=== PATIENT | male | born 1930 | race Hispanic/Latino ===

== ENCOUNTER 2017-11-08 07:50 | Inpatient (IN) | payer MEDICARE, OTHER ==
[2017-11-08 08:54] LABS: Basophils % (Auto) 0.8 % (0.0-1.8); Eosinophils % (Auto) 3.1 % (0.0-4.3); Hematocrit 22.4 % (35.5-45.6); Mean Corpuscular HGB Conc 31 % (32-34); Mean Corpuscular Hemoglobin 27 pg (28-32); Mean Corpuscular Volume 85 fl (84-94); Platelet Count 236 K/mm3 (140-440); Red Blood Count 2.63 M/mm3 (3.65-5.03); White Blood Count 6.6 K/mm3 (4.5-11.0)
[2017-11-08 08:57] LABS: Calcium 8.1 mg/dL (8.4-10.2); Chloride 107.7 mmol/L (98-107)
--- NOTE | 2017-11-08 09:10 | XRay Report ---
ROUTINE CHEST, TWO VIEWS: HISTORY: Shortness of breath. No comparison. Previous CABG changes are noted. There is borderline to mild cardiomegaly. Normal pulmonary vascularity. Bronchovascular markings in the left lower lobe are slightly prominent which appear chronic. Otherwise, the lungs are clear. No pleural effusion or pneumothorax. IMPRESSION: Borderline to mild cardiomegaly. Chronic interstitial changes in the left lower lobe. No acute process noted.
--- NOTE | 2017-11-08 10:15 | Emergency Department Report ---
ED General Adult HPI - General Chief complaint: Dyspnea/Respdistress Stated complaint: DIZZY Time Seen by Provider: 11/08/17 10:14 Source: patient, EMS Mode of arrival: Stretcher Limitations: Physical Limitation - History of Present Illness Initial comments: Patient complains of dyspnea on exertion and dyspnea at rest. It has worsened over the past 3 days. He's had some intermittent chest pain. He said no obvious signs of GI bleeding. He does not complain of abdominal pain. Generalized weakness. Patient has a history of chronic GI bleeding per the family. Perhaps he has angiodysplasia but they are a bit medically damien stating that he had an area between his stomach were it connects to the colon that was the source of bleeding which has previously been cauterized. He gets periodic iron infusion. 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 In addition he has a history of a pericardial stripping in the . He does not have a known history of coronary artery disease. He does have a history of congestive heart failure, hypertension, left BKA. -: Gradual, days(s) Location: chest Radiation: non-radiation Quality: other Consistency: intermittent Improves with: none Worsens with: none (tightness on exertion) Associated Symptoms: shortness of breath, weakness Treatments Prior to Arrival: none - Related Data Home Medications Medication Instructions Recorded Confirmed Last Taken Ascorbic Acid [Vitamin C] 500 mg PO QDAY 11/08/17 11/08/17 Unknown Aspirin 81 mg PO QDAY 11/08/17 11/08/17 Unknown Brimonidine Tartrate [Brimonidine 1 drop OU Q8HR 11/08/17 11/08/17 Unknown Tartrate 0.15%] Calcium Carbonate [Calcium] 500 mg PO QDAY 11/08/17 11/08/17 Unknown Dorzolamide HCl 10 ml OP QDAY 11/08/17 11/08/17 Unknown Ferrous Sulfate [Iron] 325 mg PO QDAY 11/08/17 11/08/17 Unknown Finasteride [Proscar] 5 mg PO QDAY 11/08/17 11/08/17 Unknown Furosemide [Lasix TAB] 40 mg PO QDAY 11/08/17 11/08/17 Unknown Loteprednol Etabonate [Lotemax 1 - 2 drop OP QID 11/08/17 11/08/17 Unknown 0.5%] Metoprolol [Lopressor] 25 mg PO BID 11/08/17 11/08/17 Unknown Omeprazole 40 mg PO QDAY 11/08/17 11/08/17 Unknown Potassium Chloride [Klor-Con 10] 10 meq PO QDAY 11/08/17 11/08/17 Unknown Simvastatin 20 mg PO QHS 11/08/17 11/08/17 Unknown Terazosin HCl 10 mg PO QDAY 11/08/17 11/08/17 Unknown Travoprost [Travatan Z] 2.5 ml OP QDAY 11/08/17 11/08/17 Unknown Allergies Allergy/AdvReac Type Severity Reaction Status Date / Time No Known Allergies Allergy Unverified 11/08/17 08:06 ED Review of Systems ROS: Stated complaint: DIZZY Other details as noted in HPI Constitutional: denies: chills, fever Eyes: denies: eye pain, eye discharge, vision change ENT: denies: ear pain, throat pain Respiratory: shortness of breath. denies: cough, wheezing Cardiovascular: chest pain, dyspnea on exertion. denies: palpitations Endocrine: no symptoms reported Gastrointestinal: denies: abdominal pain, nausea, diarrhea Genitourinary: denies: urgency, dysuria Musculoskeletal: denies: back pain, joint swelling, arthralgia Skin: denies: rash, lesions Neurological: denies: headache, weakness, paresthesias Psychiatric: denies: anxiety, depression Hematological/Lymphatic: denies: easy bleeding, easy bruising ED Past Medical Hx - Past Medical History Previous Medical History?: Yes Hx Hypertension: Yes Hx Congestive Heart Failure: Yes Additional medical history: BKA(L) [place] - Surgical History Past Surgical History?: Yes Additional Surgical History: ? cardiac - Social History Smoking Status: Never Smoker Substance Use Type: None - Medications Home Medications: Home Medications Medication Instructions Recorded Confirmed Last Taken Type Ascorbic Acid [Vitamin C] 500 mg PO QDAY 11/08/17 11/08/17 Unknown History Aspirin 81 mg PO QDAY 11/08/17 11/08/17 Unknown History Brimonidine Tartrate [Brimonidine 1 drop OU Q8HR 11/08/17 11/08/17 Unknown History Tartrate 0.15%] Calcium Carbonate [Calcium] 500 mg PO QDAY 11/08/17 11/08/17 Unknown History Dorzolamide HCl 10 ml OP QDAY 11/08/17 11/08/17 Unknown History Ferrous Sulfate [Iron] 325 mg PO QDAY 11/08/17 11/08/17 Unknown History Finasteride [Proscar] 5 mg PO QDAY 11/08/17 11/08/17 Unknown History Furosemide [Lasix TAB] 40 mg PO QDAY 11/08/17 11/08/17 Unknown History Loteprednol Etabonate [Lotemax 1 - 2 drop OP QID 11/08/17 11/08/17 Unknown History 0.5%] Metoprolol [Lopressor] 25 mg PO BID 11/08/17 11/08/17 Unknown History Omeprazole 40 mg PO QDAY 11/08/17 11/08/17 Unknown History Potassium Chloride [Klor-Con 10] 10 meq PO QDAY 11/08/17 11/08/17 Unknown History Simvastatin 20 mg PO QHS 11/08/17 11/08/17 Unknown History Terazosin HCl 10 mg PO QDAY 11/08/17 11/08/17 Unknown History Travoprost [Travatan Z] 2.5 ml OP QDAY 11/08/17 11/08/17 Unknown History ED Physical Exam - General Limitations: Physical Limitation General appearance: alert, in no apparent distress - Head Head exam: Present: atraumatic, normocephalic - Eye Eye exam: Present: normal appearance, other (some conjunctival pallor). Absent : scleral icterus - ENT ENT exam: Present: mucous membranes moist - Neck Neck exam: Present: normal inspection. Absent: tenderness, meningismus - Respiratory Respiratory exam: Present: normal lung sounds bilaterally. Absent: respiratory distress - Cardiovascular Cardiovascular Exam: Present: regular rate, normal rhythm. Absent: systolic murmur, diastolic murmur, rubs, gallop - GI/Abdominal GI/Abdominal exam: Present: soft, normal bowel sounds. Absent: distended, tenderness, guarding, rebound - Rectal Rectal exam: Present: deferred - Extremities Exam Extremities exam: Present: normal inspection - Back Exam Back exam: Present: normal inspection - Neurological Exam Neurological exam: Present: alert, oriented X3, CN II-XII intact. Absent: motor sensory deficit - Psychiatric Psychiatric exam: Present: normal affect, normal mood - Skin Skin exam: Present: warm, dry, intact, normal color. Absent: rash ED Course Vital Signs 12/21/17 08:06 Temperature 97.6 F Pulse Rate 72 Respiratory 22 Rate Blood Pressure 105/51 O2 Sat by Pulse 99 Oximetry - Reevaluation(s) Reevaluation #1: Patient was placed on 2 L of O2. He was given 20 mg of Lasix in anticipation of transfusion. Transfusion was ordered. EKG showed no evidence of acute ischemia. Troponin was negative. I spoke with Dr. Acharya and the patient was placed on telemetry for further care and evaluation. 11/08/17 11:32 ED Medical Decision Making - Lab Data Result diagrams: 11/08/17 08:30 11/08/17 08:29 Laboratory Results - last 24 hr 11/08/17 11/08/17 08:29 08:30 WBC 6.6 RBC 2.63 L Hgb 7.0 L Hct 22.4 L MCV 85 MCH 27 L MCHC 31 L RDW 17.0 H Plt Count 236 Lymph % (Auto) 11.0 L [place] % (Auto) 11.4 H Eos % (Auto) 3.1 Baso % (Auto) 0.8 Lymph # 0.7 L [place] # 0.7 Eos # 0.2 Baso # 0.1 Seg Neutrophils % 73.7 H Seg Neutrophils # 4.8 Sodium 145 Potassium 4.0 Chloride 107.7 H Carbon Dioxide 25 Anion Gap 16 BUN 30 H Creatinine 1.2 Estimated GFR 57 BUN/Creatinine Ratio 25 Glucose 72 L Calcium 8.1 L Troponin T 0.014 - EKG Data -: EKG Interpreted by Co EKG shows normal: sinus rhythm, intervals, QRS complexes, ST-T waves Rate: normal - EKG Data Somewhat poor R-wave progression but no evidence of acute ischemia. Left axis deviation and intraventricular conduction delay 11/08/17 11:33 - Radiology Data interpreted by me: Chest x-ray cardiomegaly. Chronic appearing left lower lobe interstitial changes. No gross decompensation. Critical care attestation.: If time is entered above; I have spent that time in minutes in the direct care of this critically ill patient, excluding procedure time. ED Disposition Clinical Impression: Symptomatic anemia Cardiomyopathy Qualifiers: Cardiomyopathy type: unspecified Qualified Code(s): I42.9 - Cardiomyopathy, unspecified Chest pain Qualifiers: Chest pain type: unspecified Qualified Code(s): R07.9 - Chest pain, unspecified Disposition: DC-09 OP ADMIT IP TO THIS HOSP Is pt being admited?: Yes Does the pt Need Aspirin: Yes Condition: Stable Instructions: Chest Pain (ED) Referrals: PRIMARY CARE, [Primary Care Provider] - 3-5 Days Time of Disposition: 11:34
[2017-11-08] MEDS ORDERED: NACL 0.9% 1000 ML 1,000 ML IV ONE (10:16)
[2017-11-08] MEDS ORDERED: NACL 0.9% 500 ML 500 ML IV ONE (10:41)
[2017-11-08] MEDS ORDERED: PEPCID IV ONE (10:41)
[2017-11-08] MEDS ORDERED: LASIX IV ONE (10:42)
[2017-11-08 10:52] LABS: INR 0.94 (0.87-1.13)
[2017-11-08 10:53] LABS: Partial Thromboplastin Time 27.5 Sec. (24.2-36.6)
[2017-11-08 10:56] LABS: Alanine Aminotransferase 11 units/L (7-56); Albumin 3.3 g/dL (3.9-5); Albumin/Globulin Ratio 1.4 %; Alkaline Phosphatase 91 units/L (35-129); Total Protein 5.6 g/dL (6.3-8.2)
[2017-11-08 10:58] LABS: Bilirubin,Direct < 0.2 mg/dL (0-0.2)
[2017-11-08] MEDS ORDERED: BABY ASPIRIN PO ONE (11:35)
--- NOTE | 2017-11-08 13:14 | History and Physical Report ---
History of Present Illness Date of admission: 11/08/17 11:12 Chief complaint: I cant breathe right now History of present illness: 87 M with HTN, CHF, Angiodysplasia, Iron Deficiency Anemia, presents to ED for evaluation presents to ED for evaluation. Pt states that he has experienced shortness of breath for the past week with worsening symptoms over the past 3 days. Pt also acknowledges chest pain. Pain is 1-4/10, intermittent, nonradiating, not worsened with exertion, or relieved with rest, and associated with shortness of breath and weakness. No reports of fever, chills, CP, Palpitations, NVD, Syncope, Productive cough, BRBPR, unintentional weight loss, night sweats. Past History Past Medical History: anemia, heart failure, hypertension Past Surgical History: Other (L BKA) Social history: , lives with family Family history: hypertension Medications and Allergies Allergies Allergy/AdvReac Type Severity Reaction Status Date / Time No Known Allergies Allergy Unverified 11/08/17 08:06 Home Medications Medication Instructions Recorded Confirmed Last Taken Type Ascorbic Acid [Vitamin C] 500 mg PO QDAY 11/08/17 11/08/17 Unknown History Aspirin 81 mg PO QDAY 11/08/17 11/08/17 Unknown History Brimonidine Tartrate [Brimonidine 1 drop OU Q8HR 11/08/17 11/08/17 Unknown History Tartrate 0.15%] Calcium Carbonate [Calcium] 500 mg PO QDAY 11/08/17 11/08/17 Unknown History Dorzolamide HCl 10 ml OP QDAY 11/08/17 11/08/17 Unknown History Ferrous Sulfate [Iron] 325 mg PO QDAY 11/08/17 11/08/17 Unknown History Finasteride [Proscar] 5 mg PO QDAY 11/08/17 11/08/17 Unknown History Furosemide [Lasix TAB] 40 mg PO QDAY 11/08/17 11/08/17 Unknown History Loteprednol Etabonate [Lotemax 1 - 2 drop OP QID 11/08/17 11/08/17 Unknown History 0.5%] Metoprolol [Lopressor] 25 mg PO BID 11/08/17 11/08/17 Unknown History Omeprazole 40 mg PO QDAY 11/08/17 11/08/17 Unknown History Potassium Chloride [Klor-Con 10] 10 meq PO QDAY 11/08/17 11/08/17 Unknown History Simvastatin 20 mg PO QHS 11/08/17 11/08/17 Unknown History Terazosin HCl 10 mg PO QDAY 11/08/17 11/08/17 Unknown History Travoprost [Travatan Z] 2.5 ml OP QDAY 11/08/17 11/08/17 Unknown History Active Meds: Active Medications Sodium Chloride (Nacl 0.9% 1000 Ml) 1,000 mls @ 125 mls/hr IV ONCE ONE Stop: 11/08/17 18:15 Last Admin: 11/08/17 10:40 Dose: 125 mls/hr Review of Systems Constitutional: no weight loss, no weight gain, no fever, no chills Ears, nose, mouth and throat: no ear pain, no ear discharge, no tinnitis, no decreased hearing, no nose pain Cardiovascular: chest pain, shortness of breath, no orthopnea, no paroxysmal nocturnal dyspnea Respiratory: no cough, no cough with sputum, no excessive sputum, no hemoptysis Gastrointestinal: no nausea, no vomiting, no diarrhea, no constipation Genitourinary Male: no hematuria, no flank pain, no discharge, no urinary frequency, no urinary hesitancy Rectal: no pain, no incontinence, no bleeding Musculoskeletal: no neck stiffness, no neck pain, no shooting arm pain, no arm numbness/tingling Integumentary: no rash, no pruritis, no redness, no sores, no wounds Neurological: no head injury, no transient paralysis, no paralysis Psychiatric: no anxiety, no memory loss, no change in sleep habits, no sleep disturbances, no insomnia Endocrine: no cold intolerance, no heat intolerance, no polyphagia, no excessive thirst Hematologic/Lymphatic: no easy bruising, no easy bleeding Allergic/Immunologic: no urticaria Exam - Constitutional Vitals: Temp Pulse Resp BP Pulse Ox 97.6 F 74 16 116/45 97 11/08/17 08:06 11/08/17 12:28 11/08/17 12:28 11/08/17 12:28 11/08/17 12:28 General appearance: Present: mild distress - EENT Eyes: Present: PERRL ENT: hearing intact, clear oral mucosa - Neck Neck: Present: supple, normal ROM - Respiratory Respiratory effort: normal Respiratory: bilateral: diminished, wheezing - Cardiovascular Heart Sounds: Present: S1 & S2. Absent: rub, click - Extremities Extremities: pulses symmetrical, No edema Extremity abnormal: edema Peripheral Pulses: within normal limits - Abdominal General gastrointestinal: Present: soft, non-tender, non-distended, normal bowel sounds Male genitourinary: Present: normal - Integumentary Integumentary: Present: clear, warm, dry - Musculoskeletal Musculoskeletal: gait normal, strength equal bilaterally - Psychiatric Psychiatric: appropriate mood/affect, intact judgment & insight - Neurologic Neurologic: CNII-XII intact, moves all extremities Results - Labs CBC & Chem 7: 11/08/17 08:30 11/08/17 08:29 Labs: Abnormal lab results 11/08/17 11/08/17 11/08/17 Range/Units 08:29 08:30 10:19 RBC 2.63 L (3.65-5.03) M/mm3 Hgb 7.0 L (11.8-15.2) gm/dl Hct 22.4 L (35.5-45.6) % MCH 27 L (28-32) pg MCHC 31 L (32-34) % RDW 17.0 H (13.2-15.2) % Lymph % (Auto) 11.0 L (13.4-35.0) % [place] % (Auto) 11.4 H (0.0-7.3) % Lymph # 0.7 L (1.2-5.4) K/mm3 Seg Neutrophils % 73.7 H (40.0-70.0) % Chloride 107.7 H (98-107) mmol/L BUN 30 H (9-20) mg/dL Glucose 72 L (75-100) mg/dL Calcium 8.1 L (8.4-10.2) mg/dL Total Protein 5.6 L (6.3-8.2) g/dL Albumin 3.3 L (3.9-5) g/dL Crossmatch 11/08/17 Range/Units 10:19 RBC (3.65-5.03) M/mm3 Hgb (11.8-15.2) gm/dl Hct (35.5-45.6) % MCH (28-32) pg MCHC (32-34) % RDW (13.2-15.2) % Lymph % (Auto) (13.4-35.0) % [place] % (Auto) (0.0-7.3) % Lymph # (1.2-5.4) K/mm3 Seg Neutrophils % (40.0-70.0) % Chloride (98-107) mmol/L BUN (9-20) mg/dL Glucose (75-100) mg/dL Calcium (8.4-10.2) mg/dL Total Protein (6.3-8.2) g/dL Albumin (3.9-5) g/dL Crossmatch See Detail Assessment and Plan - Patient Problems (1) CHF (congestive heart failure) Current Visit: Yes Status: Acute Qualifiers: Congestive heart failure type: systolic Congestive heart failure chronicity : acute on chronic Qualified Code(s): I50.23 - Acute on chronic systolic ( congestive) heart failure Plan to address problem: CHF Protocol: Fluid restriction, monitor uop q shift, ensure negative fluid balance, strict i/o, diuresis, Echo, supportive care, supplemental oxygen, daily weights, afterload reduction. (2) HTN (hypertension) Current Visit: Yes Status: Acute Plan to address problem: Monitor bp q shift, continue medical management. (3) Anemia Current Visit: Yes Status: Acute Plan to address problem: Symptomatic Anemia: PRBC Tansfusion, diuresis, monitor respiratory status with pulse oximetry,and repeat physical exam (4) Angiodysplasia Current Visit: Yes Status: Chronic Plan to address problem: monitor with serial hgb. Transfuse as indicated for symptomatic anemia, taking care to avoid fluid overload. (5) DVT prophylaxis Current Visit: Yes Status: Acute
[2017-11-08] MEDS: LOPRESSOR PO SCH (21:51)
[2017-11-08] MEDS: MINIPRESS PO SCH (22:00)
[2017-11-08] MEDS ORDERED: PRAVACHOL PO SCH (22:00)
[2017-11-08] MEDS ORDERED: NON-FORMULARY (Simvastatin [Simvastatin] 20 MG) PO SCH (22:00)
[2017-11-08] MEDS: ALPHAGAN P 0.15% OU SCH (22:59)
[2017-11-09] MEDS ORDERED: LASIX IV SCH (06:00)
[2017-11-09] MEDS: ALPHAGAN P 0.15% OU SCH (06:00)
[2017-11-09] MEDS ORDERED: VITAMIN C PO SCH (10:00)
[2017-11-09] MEDS ORDERED: BABY ASPIRIN PO SCH (10:00)
[2017-11-09] MEDS ORDERED: DORZOLAMIDE HCL OP SCH (10:00)
[2017-11-09] MEDS ORDERED: K-DUR PO SCH (10:00)
[2017-11-09] MEDS ORDERED: NON-FORMULARY (Travoprost [Travatan Z 0.004%] 2.5 ML) OP SCH (10:00)
[2017-11-09] MEDS ORDERED: FEOSOL PO SCH (10:00)
[2017-11-09] MEDS: MINIPRESS PO SCH (10:00)
[2017-11-09] MEDS ORDERED: NON-FORMULARY (Potassium Chloride [Klor-Con 10] 10 MEQ) PO SCH (10:00)
[2017-11-09] MEDS ORDERED: NON-FORMULARY (Terazosin Hcl [Terazosin Hcl] 10 MG) PO SCH (10:00)
[2017-11-09] MEDS ORDERED: PROTONIX PO SCH (10:00)
[2017-11-09] MEDS ORDERED: OSCAL PO SCH (10:00)
[2017-11-09] MEDS ORDERED: NON-FORMULARY (Omeprazole [Omeprazole] 40 MG) PO SCH (10:00)
[2017-11-09] MEDS: LOPRESSOR PO SCH (10:00)
[2017-11-09] MEDS ORDERED: PROSCAR PO SCH (10:00)
[2017-11-09 10:44] LABS: Basophils % (Auto) 0.6 % (0.0-1.8); Eosinophils % (Auto) 2.9 % (0.0-4.3); Hematocrit 24.8 % (35.5-45.6); Mean Corpuscular HGB Conc 32 % (32-34); Mean Corpuscular Hemoglobin 27 pg (28-32); Mean Corpuscular Volume 85 fl (84-94); Platelet Count 211 K/mm3 (140-440); Red Blood Count 2.92 M/mm3 (3.65-5.03); Red Cell Distribution Width 16.9 % (13.2-15.2); White Blood Count 5.8 K/mm3 (4.5-11.0)
[2017-11-09 11:02] LABS: Chloride 104.2 mmol/L (98-107); Potassium 4.4 mmol/L (3.6-5.0)
--- NOTE | 2017-11-09 11:50 | Event Note ---
Date: 11/09/17 Cardiology note dictated #1 chest pain #2 coronary artery disease status postcoronary bypass surgery #3 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 #4 status post pericardiectomy Patient is seen for cardiac evaluation. He is well-known to us and is followed in the office closely. Patient had an episode of firm chest pain in chest tightness yesterday she was noted to have severe anemia and he has received blood transfusion and today his pain has improved significantly and had no further pain. Overall he denies any significant exertional chest pain to suggest angina pectoris. Patient had an echocardiogram and this will be reviewed. Cardiac examination is stable. Electrocardiogram and enzymes are negative for acute myocardial infarction. I have discussed it with both family members in the room including a daughter and the . Patient is offered a nuclear stress test tomorrow but they would like to wait. Patient may be discharged and followed as an outpatient. Thank you for me to participate in the care of this gentleman Dr. KAYY Eason
--- NOTE | 2017-11-09 12:21 | Discharge Summary ---
Providers - Providers Date of Admission: 11/08/17 11:12 Date of discharge: 11/09/17 Attending physician: JINA HO MD 11/09/17 10:34 Consult to Physician [CONS] Routine Consulting Provider: MAGALY SEXTON Reason For Exam: chf Place consult to:: cardiology Notified:: y Comment:: added to list Primary care physician: IP/MOSAIC TECHNICIAN Hospitalization Reason for admission: Symptomatic anemia, Acute on chronic diastolic CHF Condition: Stable Pertinent studies: Echo EF 55-60% with diastolic CHF Hospital course: 87 M with HTN, CHF, Angiodysplasia, Iron Deficiency Anemia, presents to ED for evaluation presents to ED for evaluation. Pt states that he has experienced shortness of breath for the past week with worsening symptoms over the past 3 days. Pt also acknowledges chest pain. Pain is 1-4/10, intermittent, nonradiating, not worsened with exertion, or relieved with rest, and associated with shortness of breath and weakness. No reports of fever, chills, CP, Palpitations, NVD, Syncope, Productive cough, BRBPR, unintentional weight loss, night sweats. Patient was admitted and transfused 1 unit of PRBC and post transfusion hemglobin was 98.1 that was his baseline. Patient has been worked up previously by GI and hematology and patient is on regular IV iron therapy by his travel coordinator. Patient was diuresed with IV lasix and patient showed improvement. Patient has been followed with [facility] and recommended to discharge and follow as an O/P. patient was hemodynamically stable at the time of discharge. Disposition: TO HOME OR SELFCARE - Discharge Diagnoses (1) Anemia Status: Acute Qualifiers: Anemia type: iron deficiency Iron deficiency anemia type: chronic blood loss Qualified Code(s): D50.0 - Iron deficiency anemia secondary to blood loss (chronic) (2) CHF (congestive heart failure) Status: Chronic Qualifiers: Congestive heart failure type: diastolic Congestive heart failure chronicity: acute on chronic Qualified Code(s): I50.33 - Acute on chronic diastolic (congestive) heart failure (3) Chest pain Status: Acute Qualifiers: Chest pain type: precordial pain Qualified Code(s): R07.2 - Precordial pain Core Measure Documentation - Palliative Care Palliative Care/ Comfort Measures: Not Applicable - Core Measures Any of the following diagnoses?: history only (CHF) Exam - Constitutional Vitals: Temp Pulse Resp BP Pulse Ox 97.4 F L 66 20 113/43 100 11/09/17 09:23 11/09/17 09:23 11/09/17 09:23 11/09/17 09:23 11/09/17 09:23 General appearance: Present: no acute distress - EENT Eyes: Present: EOM intact ENT: clear oral mucosa - Neck Neck: Present: supple, normal ROM - Respiratory Respiratory effort: normal Respiratory: negative: CTA - Cardiovascular Rhythm: regular Heart Sounds: Present: S1 & S2 - Extremities Extremities: abnormal (Left BKA) Peripheral Pulses: within normal limits - Abdominal General gastrointestinal: Present: soft, non-tender, non-distended - Integumentary Integumentary: Present: clear, warm, dry - Psychiatric Psychiatric: appropriate mood/affect - Neurologic Neurologic: CNII-XII intact - Allied Health Allied health notes reviewed: nursing Plan Activity: no restrictions Weight Bearing Status: Full Weight Bearing Diet: low salt Additional Instructions: Follow at [facility] in 1 week Follow up with: SARINA GERARD MD [Primary Care Provider] - 3-5 Days MAGALY SEXTON MD [Staff Physician] - 14 Days
[2017-11-09 13:08] VITALS: BP 112/46
[2017-11-09] MEDS ORDERED: XALATAN 0.005% OU SCH (18:00)
--- NOTE | 2017-11-10 00:53 | Consultation ---
HISTORY OF PRESENT ILLNESS: The patient is an 87-year-old gentleman well known to us in the office, followed by me and Dr. Vinny Eason. The patient is known to have a longstanding history of hypertension, diastolic heart failure. The patient is known to have coronary artery disease and had bypass surgery as well as pericardiectomy in the past. Recently, he has been diagnosed to have deficiency anemia. This is secondary to angiodysplasia. Yesterday, he had an episode of difficulty in breathing as well as chest tightness. In the Emergency Room, he was noted to have significant anemia and he has received blood transfusion. Initial hemoglobin was 7 and today's hemoglobin is noted to be 8. Currently, he is totally chest pain free. He denies significant episodes of chest pain with exertion to suggest angina pectoris. He was evaluated in the office in June, at which time he was doing quite well with no significant angina or dyspnea. REVIEW OF SYSTEMS: HEAD, EYES, EARS, NOSE, AND THROAT: No symptoms. ENDOCRINE: No history of diabetes or thyroid problems. GASTROINTESTINAL: No abdominal pain, nausea, vomiting. Bowel habits have been regular. GENITOURINARY: No symptoms. CENTRAL NERVOUS SYSTEM: No history of cerebrovascular accident or convulsive disorder. HEME/ONC: No symptoms. SKIN: No symptoms. PERSONAL HISTORY: Nonsmoker, nonalcoholic. FAMILY HISTORY: Positive for hypertension. DRUG ALLERGIES: None. PHYSICAL EXAMINATION GENERAL: Adult male, well built, well nourished, in no distress, pleasant and cooperative. VITAL SIGNS: Blood pressure 113/43, pulse 66, respirations 18. HEENT: Unremarkable. NECK: Supple. No thyromegaly. Both carotids are palpable and equal. Neck veins are flat. CHEST: Symmetrical. LUNGS: Essentially clear. HEART: S1 and S2 are heard well. Grade 1-2/6 systolic murmur is present. ABDOMEN: Soft, nontender. No hepatosplenomegaly. Peristaltic sounds are heard well. EXTREMITIES: Left below knee amputation is noted. Right leg appears to be stable. DIAGNOSTIC DATA: EKG, rhythm appears to be sinus with markedly prolonged PA interval, no acute abnormalities. LABORATORY DATA: Hemoglobin 7 yesterday and 8 today. WBC normal. BUN 28, creatinine 1.3. Troponin negative and BNP 598. IMPRESSION: 1. Chest pain, presently resolved. 2. Coronary artery disease. 3. Pericardial disease. 4. Status post bypass surgery as well as pericardiectomy. 5. Anemia secondary to angiodysplasia, the patient received transfusion and symptoms have improved significantly. 6. Status post left below knee amputation. The patient is seen for cardiac evaluation. Clinically, cardiac status appears to be stable today. He apparently had an episode of dyspnea and chest tightness and so far, the EKG and cardiac enzymes are noted to be negative. Currently asymptomatic. The patient is offered to keep him here and to have stress test done tomorrow. However, the patient and family are not willing to wait. At this time, it is probably reasonable to let him go and do the stress test as an outpatient as needed. The patient was expected to come back to the emergency room if he has any recurrent chest discomfort. The patient will be monitored and followed closely as an outpatient. Thank you for allowing me to participate in the care of this pleasant gentleman. JOB# [id number] ASIF/YOJANA
== END 2017-11-09 13:45 | disposition home or self-care (01) | DRG 393 ==
LOC: ED 07:50 → 4A 11:12
PROVIDERS: ADMIT Internal Medicine; ATTEND Internal Medicine
PROC: 30233N1 Transfusion of Nonautologous Red Blood Cells into Peripheral Vein, Percutaneous Approach (ICD-10-PCS; principal; 2017-11-08)
DX: K55.20 Angiodysplasia of colon without hemorrhage (principal); I50.23 Acute on chronic systolic (congestive) heart failure; I42.9 Cardiomyopathy, unspecified; I31.9 Disease of pericardium, unspecified; I50.30 Unspecified diastolic (congestive) heart failure; R07.9 Chest pain, unspecified; D64.9 Anemia, unspecified; I25.10 Atherosclerotic heart disease of native coronary artery without angina pectoris; I11.0 Hypertensive heart disease with heart failure; Z89.512 Acquired absence of left leg below knee; Z79.899 Other long term (current) drug therapy; Z79.82 Long term (current) use of aspirin; Z82.49 Family history of ischemic heart disease and other diseases of the circulatory system; Z95.1 Presence of aortocoronary bypass graft
CPT/HCPCS: 36415; 71020; 80048; 80074; 83735; 83880; 84484; 85025; 85610; 85730; 86850; 86900; 86901; 86920; 93005; 93010; 93306; 96374; 96375; A9270-GY; J1940; J7030; P9016

== ENCOUNTER 2017-11-30 10:22 | Inpatient (IN) | payer MEDICARE, OTHER ==
--- NOTE | 2017-11-30 12:26 | Emergency Department Report ---
ED Shortness of Breath HPI - General Chief Complaint: Dyspnea/Respdistress Stated Complaint: CHEST PAIN /SOB Time Seen by Provider: 11/30/17 12:18 Source: patient, EMS Mode of arrival: Stretcher Limitations: No Limitations - History of Present Illness Initial Comments: Patient is a 87-year-old male who is presenting with shortness of breath with exertion. Patient states that he was here on November 08 and had to have a blood transfusion at that time secondary to anemia. Patient states he fell 5 for approximately 1 week and then has for the last 3 weeks ahead increased shortness of breath. Patient also states that he has has some exertional chest discomfort exertional dizziness. Patient denies nausea vomiting diarrhea sore throat and body aches. Patient does have a dry cough. Patient denies fever. Patient states at rest he feels relatively normal MD Complaint: shortness of breath, chest pain Onset/Timin -: Gradual, week(s) Pain Scale: 5 Improves With: rest Worsens With: exertion - Related Data Home Oxygen Therapy: No Home Medications Medication Instructions Recorded Confirmed Last Taken Ascorbic Acid [Vitamin C] 500 mg PO QDAY 11/08/17 11/08/17 Unknown Aspirin 81 mg PO QDAY 11/08/17 11/08/17 Unknown Brimonidine Tartrate [Brimonidine 1 drop OU Q8HR 11/08/17 11/08/17 Unknown Tartrate 0.15%] Calcium Carbonate [Calcium] 500 mg PO QDAY 11/08/17 11/08/17 Unknown Dorzolamide HCl 10 ml OP QDAY 11/08/17 11/08/17 Unknown Ferrous Sulfate [Iron] 325 mg PO QDAY 11/08/17 11/08/17 Unknown Finasteride [Proscar] 5 mg PO QDAY 11/08/17 11/08/17 Unknown Furosemide [Lasix TAB] 40 mg PO QDAY 11/08/17 11/08/17 Unknown Loteprednol Etabonate [Lotemax 1 - 2 drop OP QID 11/08/17 11/08/17 Unknown 0.5%] Metoprolol [Lopressor TAB] 25 mg PO BID 11/08/17 11/08/17 Unknown Omeprazole 40 mg PO QDAY 11/08/17 11/08/17 Unknown Potassium Chloride [Klor-Con 10] 10 meq PO QDAY 11/08/17 11/08/17 Unknown Simvastatin 20 mg PO QHS 11/08/17 11/08/17 Unknown Terazosin HCl 10 mg PO QDAY 11/08/17 11/08/17 Unknown Travoprost [Travatan Z 0.004%] 2.5 ml OP QDAY 11/08/17 11/08/17 Unknown Allergies Allergy/AdvReac Type Severity Reaction Status Date / Time No Known Allergies Allergy Verified 11/30/17 11:30 ED Review of Systems ROS: Stated complaint: CHEST PAIN /SOB Other details as noted in HPI Comment: All other systems reviewed and negative ED Past Medical Hx - Past Medical History Hx Hypertension: Yes Hx Congestive Heart Failure: Yes 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 cardiac - Social History Smoking Status: Never Smoker Substance Use Type: Alcohol - Medications Home Medications: Home Medications Medication Instructions Recorded Confirmed Last Taken Type Ascorbic Acid [Vitamin C] 500 mg PO QDAY 11/08/17 11/08/17 Unknown History Aspirin 81 mg PO QDAY 11/08/17 11/08/17 Unknown History Brimonidine Tartrate [Brimonidine 1 drop OU Q8HR 11/08/17 11/08/17 Unknown History Tartrate 0.15%] Calcium Carbonate [Calcium] 500 mg PO QDAY 11/08/17 11/08/17 Unknown History Dorzolamide HCl 10 ml OP QDAY 11/08/17 11/08/17 Unknown History Ferrous Sulfate [Iron] 325 mg PO QDAY 11/08/17 11/08/17 Unknown History Finasteride [Proscar] 5 mg PO QDAY 11/08/17 11/08/17 Unknown History Furosemide [Lasix TAB] 40 mg PO QDAY 11/08/17 11/08/17 Unknown History Loteprednol Etabonate [Lotemax 1 - 2 drop OP QID 11/08/17 11/08/17 Unknown History 0.5%] Metoprolol [Lopressor TAB] 25 mg PO BID 11/08/17 11/08/17 Unknown History Omeprazole 40 mg PO QDAY 11/08/17 11/08/17 Unknown History Potassium Chloride [Klor-Con 10] 10 meq PO QDAY 11/08/17 11/08/17 Unknown History Simvastatin 20 mg PO QHS 11/08/17 11/08/17 Unknown History Terazosin HCl 10 mg PO QDAY 11/08/17 11/08/17 Unknown History Travoprost [Travatan Z 0.004%] 2.5 ml OP QDAY 11/08/17 11/08/17 Unknown History ED Physical Exam - General Limitations: No Limitations General appearance: alert, in no apparent distress, other (pale) - Head Head exam: Present: atraumatic, normocephalic - Eye Eye exam: Present: normal appearance - ENT ENT exam: Present: mucous membranes moist - Neck Neck exam: Present: normal inspection - Respiratory Respiratory exam: Present: normal lung sounds bilaterally, other (tachypnic). Absent: respiratory distress, wheezes, rales, rhonchi - Cardiovascular Cardiovascular Exam: Present: regular rate, normal rhythm. Absent: systolic murmur, diastolic murmur, rubs, gallop - GI/Abdominal GI/Abdominal exam: Present: soft, normal bowel sounds. Absent: distended, tenderness, guarding, rebound - Rectal Rectal exam: Present: deferred, heme (+) stool - Extremities Exam Extremities exam: Present: normal inspection - Back Exam Back exam: Present: normal inspection - Neurological Exam Neurological exam: Present: alert, oriented X3 - Psychiatric Psychiatric exam: Present: normal affect, normal mood - Skin Skin exam: Present: warm, dry, intact, normal color. Absent: rash ED Course Vital Signs 11/30/17 11:30 Temperature 98.7 F Pulse Rate 67 Respiratory 18 Rate Blood Pressure 136/55 O2 Sat by Pulse 100 Oximetry ED Medical Decision Making - Lab Data Result diagrams: 11/30/17 12:31 11/30/17 12:31 Lab Results 11/30/17 11/30/17 11/30/17 Range/Units 12:31 12:31 12:31 WBC (4.5-11.0) K/mm3 RBC (3.65-5.03) M/mm3 Hgb (11.8-15.2) gm/dl Hct (35.5-45.6) % MCV (84-94) fl MCH (28-32) pg MCHC (32-34) % RDW (13.2-15.2) % Plt Count (140-440) K/mm3 Lymph % (Auto) (13.4-35.0) % [place] % (Auto) (0.0-7.3) % Eos % (Auto) (0.0-4.3) % Baso % (Auto) (0.0-1.8) % Lymph # (1.2-5.4) K/mm3 [place] # (0.0-0.8) K/mm3 Eos # (0.0-0.4) K/mm3 Baso # (0.0-0.1) K/mm3 Seg Neutrophils % (40.0-70.0) % Seg Neutrophils # (1.8-7.7) K/mm3 PT 13.7 (12.2-14.9) Sec. INR 1.00 (0.87-1.13) APTT 27.2 (24.2-36.6) Sec. Sodium 144 (137-145) mmol/L Potassium 4.0 (3.6-5.0) mmol/L Chloride 103.3 (98-107) mmol/L Carbon Dioxide 27 (22-30) mmol/L Anion Gap 18 mmol/L BUN 31 H (9-20) mg/dL Creatinine 1.3 (0.8-1.5) mg/dL Estimated GFR 52 ml/min BUN/Creatinine Ratio 24 % Glucose 103 H (75-100) mg/dL Calcium 8.3 L (8.4-10.2) mg/dL Troponin T (0.00-0.029) ng/mL Blood Type O NEGATIVE Antibody Screen Negative 11/30/17 11/30/17 Range/Units 12:31 12:31 WBC 6.5 (4.5-11.0) K/mm3 RBC 2.87 L (3.65-5.03) M/mm3 Hgb 6.3 L (11.8-15.2) gm/dl Hct 21.2 L (35.5-45.6) % MCV 74 L (84-94) fl MCH 22 L (28-32) pg MCHC 30 L (32-34) % RDW 23.2 H (13.2-15.2) % Plt Count 234 (140-440) K/mm3 Lymph % (Auto) 10.4 L (13.4-35.0) % [place] % (Auto) 9.7 H (0.0-7.3) % Eos % (Auto) 1.8 (0.0-4.3) % Baso % (Auto) 0.5 (0.0-1.8) % Lymph # 0.7 L (1.2-5.4) K/mm3 [place] # 0.6 (0.0-0.8) K/mm3 Eos # 0.1 (0.0-0.4) K/mm3 Baso # 0.0 (0.0-0.1) K/mm3 Seg Neutrophils % 77.6 H (40.0-70.0) % Seg Neutrophils # 5.1 (1.8-7.7) K/mm3 PT (12.2-14.9) Sec. INR (0.87-1.13) APTT (24.2-36.6) Sec. Sodium (137-145) mmol/L Potassium (3.6-5.0) mmol/L Chloride (98-107) mmol/L Carbon Dioxide (22-30) mmol/L Anion Gap mmol/L BUN (9-20) mg/dL Creatinine (0.8-1.5) mg/dL Estimated GFR ml/min BUN/Creatinine Ratio % Glucose (75-100) mg/dL Calcium (8.4-10.2) mg/dL Troponin T 0.013 (0.00-0.029) ng/mL Blood Type Antibody Screen - EKG Data -: EKG Interpreted by Me - EKG Data Interpretation: other (EKG showed A. fib with a rate of 62 axis is leftward no ST elevation or depressions poor R-wave progression, interpretation 1240) - Medical Decision Making Is 87-year-old male who is presenting with S exertional shortness of breath and chest pain. This is been present for the last several weeks. Patient was found to be anemic with a low hemoglobin patient will be transfused and admitted to the hospital for further evaluation. Critical Care Time: Yes Critical care time in (mins) excluding proc time.: 30 Critical care attestation.: If time is entered above; I have spent that time in minutes in the direct care of this critically ill patient, excluding procedure time. ED Disposition Clinical Impression: Symptomatic anemia GI bleed Qualifiers: GI bleed type/associated pathology: unspecified gastrointestinal hemorrhage type Qualified Code(s): K92.2 - Gastrointestinal hemorrhage, unspecified Disposition: DC-09 OP ADMIT IP TO THIS HOSP Is pt being admited?: Yes Does the pt Need Aspirin: No Condition: Stable Referrals: PRIMARY CARE, [Primary Care Provider] - 3-5 Days
--- NOTE | 2017-11-30 12:30 | XRay Report ---
AP CHEST: HISTORY: Shortness of breath Borderline cardiomegaly is unchanged since 11/08/17. The lungs remain generally clear. No evidence of pneumonia, CHF or pneumothorax. The bony thorax is grossly intact. IMPRESSION: Borderline heart size. Lungs clear.
[2017-11-30 12:57] LABS: Basophils % (Auto) 0.5 % (0.0-1.8); Eosinophils # (Auto) 0.1 K/mm3 (0.0-0.4); Eosinophils % (Auto) 1.8 % (0.0-4.3); Hematocrit 21.2 % (35.5-45.6); Hemoglobin 6.3 gm/dl (11.8-15.2); Lymphocytes # (Auto) 0.7 K/mm3 (1.2-5.4); Lymphocytes % (Auto) 10.4 % (13.4-35.0); Mean Corpuscular HGB Conc 30 % (32-34); Mean Corpuscular Volume 74 fl (84-94); Monocytes # (Auto) 0.6 K/mm3 (0.0-0.8); Monocytes % (Auto) 9.7 % (0.0-7.3); Platelet Count 234 K/mm3 (140-440); Red Blood Count 2.87 M/mm3 (3.65-5.03)
[2017-11-30 13:05] LABS: Mean Corpuscular Hemoglobin 22 pg (28-32); Red Cell Distribution Width 23.2 % (13.2-15.2)
[2017-11-30 13:06] LABS: Partial Thromboplastin Time 27.2 Sec. (24.2-36.6)
[2017-11-30 13:09] LABS: Calcium 8.3 mg/dL (8.4-10.2)
[2017-11-30] MEDS ORDERED: NACL 0.9% 1000 ML 1,000 ML IV ONE (13:46)
[2017-11-30] MEDS ORDERED: NACL 0.9% 500 ML 500 ML IV ONE (13:47)
[2017-11-30] MEDS: NACL 0.9% 1000 ML 1,000 ML IV SCH (18:29)
--- NOTE | 2017-11-30 23:48 | History and Physical Report ---
History of Present Illness Date of examination: 11/30/17 Date of admission: 11/30/17 14:31 Chief complaint: Cc increasing SOB on exertion History of present illness: History of Present Illness: 87-year-old male who is presenting with shortness of breath with exertion. Patient states that he was here on November 08 to have a blood transfusion at that time secondary to anemia. Patient has for the last 3 weeks increased shortness of breath. Patient also states that he has has some exertional chest discomfort and exertional dizziness. Patient denies nausea vomiting diarrhea sore throat and body aches. Patient does have a dry cough. Patient denies fever. Patient states at rest he feels relatively normal.He had upper GI endoscopy recently and colonoscopy in the past Past Medical History Hx Hypertension: Yes Hx Congestive Heart Failure: Yes Additional medical history: SOFIA ZULUAGA (L) MIND - Surgical History Additional Surgical History: ? cardiac - Social History Smoking Status: Never Smoker Substance Use Type: Alcohol - Medications Home Medications: Home Medications Medication Instructions Recorded Confirmed Last Taken Type Ascorbic Acid [Vitamin C] 500 mg PO QDAY 11/08/17 11/08/17 Unknown History Aspirin 81 mg PO QDAY 11/08/17 11/08/17 Unknown History Brimonidine Tartrate [Brimonidine 1 drop OU Q8HR 11/08/17 11/08/17 Unknown History Tartrate 0.15%] Calcium Carbonate [Calcium] 500 mg PO QDAY 11/08/17 11/08/17 Unknown History Dorzolamide HCl 10 ml OP QDAY 11/08/17 11/08/17 Unknown History Ferrous Sulfate [Iron] 325 mg PO QDAY 11/08/17 11/08/17 Unknown History Finasteride [Proscar] 5 mg PO QDAY 11/08/17 11/08/17 Unknown History Furosemide [Lasix TAB] 40 mg PO QDAY 11/08/17 11/08/17 Unknown History Loteprednol Etabonate [Lotemax 1 - 2 drop OP QID 11/08/17 11/08/17 Unknown History 0.5%] Metoprolol [Lopressor TAB] 25 mg PO BID 11/08/17 11/08/17 Unknown History Omeprazole 40 mg PO QDAY 11/08/17 11/08/17 Unknown History Potassium Chloride [Klor-Con 10] 10 meq PO QDAY 11/08/17 11/08/17 Unknown History Simvastatin 20 mg PO QHS 11/08/17 11/08/17 Unknown History Terazosin HCl 10 mg PO QDAY 11/08/17 11/08/17 Unknown History Travoprost [Travatan Z 0.004%] 2.5 ml OP QDAY 11/08/17 11/08/17 Unknown History Medications and Allergies Allergies Allergy/AdvReac Type Severity Reaction Status Date / Time No Known Allergies Allergy Verified 11/30/17 11:30 Home Medications Medication Instructions Recorded Confirmed Last Taken Type Ascorbic Acid [Vitamin C] 500 mg PO QDAY 11/08/17 11/30/17 Unknown History Aspirin 81 mg PO QDAY 11/08/17 11/30/17 Unknown History Brimonidine Tartrate [Brimonidine 1 drop OU Q8HR 11/08/17 11/30/17 Unknown History Tartrate 0.15%] Calcium Carbonate [Calcium] 500 mg PO QDAY 11/08/17 11/30/17 Unknown History Dorzolamide HCl 10 ml OP QDAY 11/08/17 11/30/17 Unknown History Ferrous Sulfate [Iron] 325 mg PO QDAY 11/08/17 11/30/17 Unknown History Finasteride [Proscar] 5 mg PO QDAY 11/08/17 11/30/17 Unknown History Furosemide [Lasix TAB] 40 mg PO QDAY 11/08/17 11/30/17 Unknown History Loteprednol Etabonate [Lotemax 1 - 2 drop OP QID 11/08/17 11/30/17 Unknown History 0.5%] Metoprolol [Lopressor TAB] 25 mg PO BID 11/08/17 11/30/17 Unknown History Omeprazole 40 mg PO QDAY 11/08/17 11/30/17 Unknown History Potassium Chloride [Klor-Con 10] 10 meq PO QDAY 11/08/17 11/30/17 Unknown History Simvastatin 20 mg PO QHS 11/08/17 11/30/17 Unknown History Terazosin HCl 10 mg PO QDAY 11/08/17 11/30/17 Unknown History Travoprost [Travatan Z 0.004%] 2.5 ml OP QDAY 11/08/17 11/30/17 Unknown History Active Meds: Active Medications Sodium Chloride (Nacl 0.9% 1000 Ml) 1,000 mls @ 75 mls/hr IV DIRECT SEMAJ Last Admin: 11/30/17 18:29 Dose: 75 mls/hr Review of Systems All systems: negative Constitutional: no weight loss, no weight gain, no fever, no chills Ears, nose, mouth and throat: no dysphagia, no hoarseness, no sore throat, no swelling in mouth Cardiovascular: chest pain, orthopnea, shortness of breath, dyspnea on exertion Respiratory: shortness of breath, dyspnea on exertion, no cough, no cough with sputum, no excessive sputum, no hemoptysis, no snoring Gastrointestinal: no abdominal pain, no nausea, no vomiting, no diarrhea, no constipation, no change in bowel habits, no hematemesis, no coffee ground emesis , no BRBPR, no melena, no hematochezia Genitourinary Male: urinary hesitancy, no dysuria, no hematuria, no flank pain, no discharge, no urinary frequency Rectal: no pain Musculoskeletal: no neck stiffness, no neck pain, no shooting arm pain, no arm numbness/tingling Integumentary: no rash, no pruritis, no redness Neurological: no head injury, no transient paralysis, no paralysis, no seizures , no syncope Psychiatric: no anxiety, no memory loss Endocrine: no cold intolerance, no heat intolerance Hematologic/Lymphatic: no easy bruising, no easy bleeding Allergic/Immunologic: no urticaria, no allergic rhinitis, no wheezing Exam - Constitutional Vitals: Temp Pulse Resp BP Pulse Ox 98.7 F 67 18 136/55 100 11/30/17 11:30 11/30/17 11:30 11/30/17 11:30 11/30/17 11:30 11/30/17 11:30 General appearance: Present: no acute distress, well-nourished - EENT Eyes: Present: PERRL ENT: hearing intact, clear oral mucosa - Neck Neck: Present: supple, normal ROM - Respiratory Respiratory effort: normal Respiratory: bilateral: CTA - Cardiovascular Heart rate: 80 Rhythm: regular Heart Sounds: Present: S1 & S2. Absent: rub, click - Extremities Extremities: no ischemia, pulses intact, pulses symmetrical, No edema, abnormal (L BKA) Peripheral Pulses: within normal limits - Abdominal General gastrointestinal: Present: soft, non-tender, non-distended, normal bowel sounds Male genitourinary: Present: normal - Rectal Rectal Exam: deferred - Integumentary Integumentary: Present: clear, warm, dry - Musculoskeletal Musculoskeletal: gait normal, strength equal bilaterally - Psychiatric Psychiatric: appropriate mood/affect, intact judgment & insight - Neurologic Neurologic: CNII-XII intact, moves all extremities - Allied Health Allied health notes reviewed: nursing, case management Results - Labs CBC & Chem 7: 11/30/17 12:31 11/30/17 12: Labs: Laboratory Last Values WBC 6.5 K/mm3 (4.5-11.0) 11/30/17 12: RBC 2.87 M/mm3 (3.65-5.03) L 11/30/17: Hgb 6.3 gm/dl (11.8-15.2) L 11/30/17 12: Hct 21.2 % (35.5-45.6) L 11/30/17 12: MCV 74 fl (84-94) L 11/30/17 12: MCH 22 pg (28-32) L 11/30/17 12: MCHC 30 % (32-34) L 11/30/17 12: RDW 23.2 % (13.2-15.2) H 11/30/17 12: Plt Count 234 K/mm3 (140-440) 11/30/17 12: Lymph % (Auto) 10.4 % (13.4-35.0) L 11/30/17 12: [place] % (Auto) 9.7 % (0.0-7.3) H 11/30/17 12: Eos % (Auto) 1.8 % (0.0-4.3) 11/30/17 12: Baso % (Auto) 0.5 % (0.0-1.8) 11/30/17: Lymph # 0.7 K/mm3 (1.2-5.4) L 11/30/17 12: [place] # 0.6 K/mm3 (0.0-0.8) 11/30/17 12: Eos # 0.1 K/mm3 (0.0-0.4) 11/30/17 12: Baso # 0.0 K/mm3 (0.0-0.1) 11/30/17 12: Seg Neutrophils % 77.6 % (40.0-70.0) H 11/30/17 12: Seg Neutrophils # 5.1 K/mm3 (1.8-7.7) 11/30/17 12: PT 13.7 Sec. (12.2-14.9) 11/30/17 12: INR 1.00 (0.87-1.13) 11/30/17 12: APTT 27.2 Sec. (24.2-36.6) 11/30/17 12:31 Sodium 144 mmol/L (137-145) 11/30/17 12:31 Potassium 4.0 mmol/L (3.6-5.0) 11/30/17 12: Chloride 103.3 mmol/L (98-107) 11/30/17 12: Carbon Dioxide 27 mmol/L (22-30) 11/30/17 12: Anion Gap 18 mmol/L 11/30/17 12: BUN 31 mg/dL (9-20) H 11/30/17 12:31 Creatinine 1.3 mg/dL (0.8-1.5) 11/30/17 12: Estimated GFR 52 ml/min 11/30/17 12: BUN/Creatinine Ratio 24 % 11/30/17 12:31 Glucose 103 mg/dL (75-100) H 11/30/17 12:31 Calcium 8.3 mg/dL (8.4-10.2) L 11/30/17 12:31 Troponin T 0.013 ng/mL (0.00-0.029) 11/30/17 12:31 NT-Pro-B Natriuret Pep 1116 pg/mL (0-900) H 11/30/17 12:31 Blood Type O NEGATIVE 11/30/17 12:31 Antibody Screen Negative 11/30/17 12:31 Crossmatch See Detail 11/30/17 12:31 - Imaging and Cardiology EKG: report reviewed Chest x-ray: report reviewed Assessment and Plan Advance Directives: Yes (Full code) VTE prophylaxis?: Chemical Plan of care discussed with patient/family: Yes - Patient Problems (1) Symptomatic anemia Current Visit: Yes Status: Acute Plan to address problem: patient has Angiodysplasia and AVM's Transfuse 2 units of PRbC (2) Chronic gastrointestinal bleeding Current Visit: No Status: Chronic Plan to address problem: Cont Protonix Had w/u in the past (3) HTN (hypertension) Current Visit: No Status: Chronic Qualifiers: Hypertension type: essential hypertension Qualified Code(s): I10 - Essential (primary) hypertension Plan to address problem: Cont Antihypertensives (4) CHF (congestive heart failure) Current Visit: No Status: Chronic Qualifiers: Congestive heart failure type: diastolic Congestive heart failure chronicity: acute on chronic Qualified Code(s): I50.33 - Acute on chronic diastolic (congestive) heart failure Plan to address problem: Cont Lasix (5) HLD (hyperlipidemia) Current Visit: Yes Status: Chronic Qualifiers: Hyperlipidemia type: mixed hyperlipidemia Qualified Code(s): E78.2 - Mixed hyperlipidemia Plan to address problem: Cont statins (6) Glaucoma Current Visit: Yes Status: Chronic Qualifiers: Glaucoma type: open-angle Laterality: bilateral Plan to address problem: Cont Eye drops--Brimonide and Dorzalamide (7) BPH (benign prostatic hyperplasia) Current Visit: Yes Status: Chronic Qualifiers: Lower urinary tract symptom presence: symptoms present Plan to address problem: Cont proscar and Hytrin (8) DVT prophylaxis Current Visit: No Status: Acute Plan to address problem: SCD's only
[2017-12-01] MEDS ORDERED: NACL 0.9% 500 ML 500 ML IV ONE (04:46)
[2017-12-01] MEDS: ALPHAGAN P 0.15% OU SCH ×3 (06:00→21:34)
[2017-12-01] MEDS: NACL 0.9% 1000 ML 1,000 ML IV SCH (06:14)
[2017-12-01] MEDS ORDERED: DORZOLAMIDE HCL OP SCH (10:00)
[2017-12-01] MEDS ORDERED: LOTEPREDNOL ETABONATE OP SCH (10:00)
[2017-12-01] MEDS: OSCAL PO SCH (10:01)
[2017-12-01] MEDS: FEOSOL PO SCH (10:01)
[2017-12-01] MEDS: PROTONIX PO SCH (10:01)
[2017-12-01] MEDS: PROSCAR PO SCH (10:01)
[2017-12-01] MEDS: LASIX PO SCH (10:02)
[2017-12-01] MEDS: LOPRESSOR PO SCH ×2 (10:02→21:32)
[2017-12-01] MEDS: VITAMIN C PO SCH (10:02)
[2017-12-01] MEDS: K-DUR PO SCH (10:03)
--- NOTE | 2017-12-01 10:36 | Progress Note ---
Assessment and Plan Assessment and plan: 87-year-old male who is presenting with shortness of breath with exertion. Patient states that he was here on November 08 to have a blood transfusion at that time secondary to anemia. Patient has for the last 3 weeks increased shortness of breath. Patient also states that he has has some exertional chest discomfort and exertional dizziness. Patient denies nausea vomiting diarrhea sore throat and body aches. Patient does have a dry cough. Patient denies fever. 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 on second unit of PRBC Chronic gastrointestinal bleeding Cont Protonix Had w/u in the past, GI consult HTN (hypertension) Cont Antihypertensives chronic diastolic CHF (congestive heart failure) Cont Lasix chest pain CAD sp CABG and pericardiectomy #1 chest pain most likely due to symptomatic anemia, sp transfusion HLD (hyperlipidemia) Cont statins Glaucoma Cont Eye drops--Brimonide and Dorzalamide BPH (benign prostatic hyperplasia) Cont proscar and Hytrin 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 [place] DVT prophylaxis SCD's only History Interval history: Review of systems Constitutional: No fevers, no malaise, no joint pains CVS: No chest pain, no orthopnea, no dyspnea on exertion, no pedal edema GI: No abdominal pain, no diarrhea, no vomiting, no constipation Respiratory: No shortness of breath, no wheezing, no coughing Hospitalist Physical - Physical exam Narrative exam: General.: Appears well, no distress, nontoxic HEENT: Moist mucous membranes, extraocular muscles intact, no lymphadenopathy Neck: supple Cardiac: S1-S2 heard Lungs: clear to auscultation bilaterally Abdomen: soft , nontender, nondistended, bowel sounds positive Extremities: no edema clubbing or cyanosis, status post left lower extremity amputation Skin: no rash or lesions Neurologic: no gross focal deficits Psych: appropriate behavior, appropriate mood, corporative, judgment intact - Constitutional Vitals: Temp Pulse Resp BP Pulse Ox 98.0 F 60 20 132/59 95 12/01/17 07:58 12/01/17 07:58 12/01/17 07:58 12/01/17 07:58 12/01/17 07:58 General appearance: Present: no acute distress, well-nourished Results - Labs CBC & Chem 7: 11/30/17 12:31 11/30/17 12: Labs: Laboratory Last Values WBC 6.5 K/mm3 (4.5-11.0) 11/30/17 12: RBC 2.87 M/mm3 (3.65-5.03) L 11/30/17 12: Hgb 6.3 gm/dl (11.8-15.2) L 11/30/17: Hct 21.2 % (35.5-45.6) L 11/30/17: MCV 74 fl (84-94) L 11/30/17: MCH 22 pg (28-32) L 11/30/17: MCHC 30 % (32-34) L 11/30/17: RDW 23.2 % (13.2-15.2) H 11/30/17: Plt Count 234 K/mm3 (140-440) 11/30/17: Lymph % (Auto) 10.4 % (13.4-35.0) L 11/30/17 12: [place] % (Auto) 9.7 % (0.0-7.3) H 11/30/17: Eos % (Auto) 1.8 % (0.0-4.3) 11/30/17: Baso % (Auto) 0.5 % (0.0-1.8) 11/30/17: Lymph # 0.7 K/mm3 (1.2-5.4) L 11/30/17: [place] # 0.6 K/mm3 (0.0-0.8) 11/30/17 12: Eos # 0.1 K/mm3 (0.0-0.4) 11/30/17: Baso # 0.0 K/mm3 (0.0-0.1) 11/30/17 12: Seg Neutrophils % 77.6 % (40.0-70.0) H 11/30/17: Seg Neutrophils # 5.1 K/mm3 (1.8-7.7) 11/30/17:31 PT 13.7 Sec. (12.2-14.9) 11/30/17 12:31 INR 1.00 (0.87-1.13) 11/30/17 12:31 APTT 27.2 Sec. (24.2-36.6) 11/30/17 12:31 Sodium 144 mmol/L (137-145) 11/30/17 12:31 Potassium 4.0 mmol/L (3.6-5.0) 11/30/17 12:31 Chloride 103.3 mmol/L (98-107) 11/30/17 12:31 Carbon Dioxide 27 mmol/L (22-30) 11/30/17 12:31 Anion Gap 18 mmol/L 11/30/17 12:31 BUN 31 mg/dL (9-20) H 11/30/17 12:31 Creatinine 1.3 mg/dL (0.8-1.5) 11/30/17 12:31 Estimated GFR 52 ml/min 11/30/17 12:31 BUN/Creatinine Ratio 24 % 11/30/17 12:31 Glucose 103 mg/dL (75-100) H 11/30/17 12:31 Calcium 8.3 mg/dL (8.4-10.2) L 11/30/17 12:31 Troponin T 0.013 ng/mL (0.00-0.029) 11/30/17 12:31 NT-Pro-B Natriuret Pep 1116 pg/mL (0-900) H 11/30/17 12:31 Blood Type O NEGATIVE 11/30/17 12:31 Antibody Screen Negative 11/30/17 12:31 Crossmatch See Detail 11/30/17 12:31
[2017-12-01] MEDS: MINIPRESS PO SCH ×2 (10:43→21:31)
[2017-12-01 12:43] LABS: Bilirubin,Urine NEG (Negative); Blood,Urine MOD (Negative); Color,Urine Yellow (Yellow); Nitrite,Urine NEG (Negative); Protein,Urine <15 mg/dL mg/dL (Negative); Urobilinogen,Urine < 2.0 mg/dL (<2.0)
[2017-12-01 16:46] LABS: Hematocrit 25.7 % (35.5-45.6); Hemoglobin 7.7 gm/dl (11.8-15.2); Mean Corpuscular HGB Conc 30 % (32-34); Mean Corpuscular Volume 77 fl (84-94); Platelet Count 224 K/mm3 (140-440); Red Blood Count 3.35 M/mm3 (3.65-5.03)
[2017-12-01 16:47] LABS: Mean Corpuscular Hemoglobin 23 pg (28-32); Red Cell Distribution Width 21.8 % (13.2-15.2)
--- NOTE | 2017-12-01 18:38 | Gastroenterology Consultation ---
History of Present Illness - Reason for Consult Consult date: 12/01/17 Anemia Requesting physician: AUSTEN PEDROZA - History of Present Illness The patient is seen with his daughter (ICU nurse) for severe anemia. Per them, he has had mild anemia for a few years, and on PO iron. Around May of last year, it progressed, and he has had IV iron x 2, as well as transfusion x 2-3 times since then. There has been no gross bleeding, but his stools are always "dark" because of his PO iron. He had an EGD at the [facility] in May that "something was cauterized that was bleeding" (?AVM) but no other lesions seen. His last colonoscopy was over 5 years ago. He has no abdominal pain or weight loss. He takes 81mg ASA, but no other blood thinners. However, per the family he has "severe" CHF and he can not walk to the mailbox without being winded. He had a recent TTE with Dr Eason with unk results but was told the function of the heart was stable. Past History Past Medical History: anemia, heart failure, hypertension, hyperlipidemia Past Surgical History: Other (BKA; pericadectomy) Social history: lives with family. denies: smoking, alcohol abuse Family history: no significant family history Medications and Allergies Allergies Allergy/AdvReac Type Severity Reaction Status Date / Time No Known Allergies Allergy Verified 11/30/17 11:30 Home Medications Medication Instructions Recorded Confirmed Last Taken Type Ascorbic Acid [Vitamin C] 500 mg PO QDAY 11/08/17 11/30/17 Unknown History Aspirin 81 mg PO QDAY 11/08/17 11/30/17 Unknown History Brimonidine Tartrate [Brimonidine 1 drop OU Q8HR 11/08/17 11/30/17 Unknown History Tartrate 0.15%] Calcium Carbonate [Calcium] 500 mg PO QDAY 11/08/17 11/30/17 Unknown History Dorzolamide HCl 10 ml OP QDAY 11/08/17 11/30/17 Unknown History Ferrous Sulfate [Iron] 325 mg PO QDAY 11/08/17 11/30/17 Unknown History Finasteride [Proscar] 5 mg PO QDAY 11/08/17 11/30/17 Unknown History Furosemide [Lasix TAB] 40 mg PO QDAY 11/08/17 11/30/17 Unknown History Loteprednol Etabonate [Lotemax 1 - 2 drop OP QID 11/08/17 11/30/17 Unknown History 0.5%] Metoprolol [Lopressor TAB] 25 mg PO BID 11/08/17 11/30/17 Unknown History Omeprazole 40 mg PO QDAY 11/08/17 11/30/17 Unknown History Potassium Chloride [Klor-Con 10] 10 meq PO QDAY 11/08/17 11/30/17 Unknown History Simvastatin 20 mg PO QHS 11/08/17 11/30/17 Unknown History Terazosin HCl 10 mg PO QDAY 11/08/17 11/30/17 Unknown History Travoprost [Travatan Z 0.004%] 2.5 ml OP QDAY 11/08/17 11/30/17 Unknown History Active Meds: Active Medications Ascorbic Acid (Vitamin C) 500 mg PO QDAY [facility] Last Admin: 12/01/17 10:02 Dose: 500 mg Brimonidine Tartrate (Alphagan P 0.15%) 1 drops OU Q8HR [facility] Last Admin: 12/01/17 15:02 Dose: 1 drops Calcium Carbonate/Glycine (Oscal) 1,250 mg PO QDAY [facility] Last Admin: 12/01/17 10:01 Dose: 1,250 mg Ferrous Sulfate (Feosol) 325 mg PO QDAY [facility] Last Admin: 12/01/17 10:01 Dose: 325 mg Finasteride (Proscar) 5 mg PO QDAY [facility] Last Admin: 12/01/17 10:01 Dose: 5 mg Furosemide (Lasix) 40 mg PO QDAY [facility] Last Admin: 12/01/17 10:02 Dose: 40 mg Sodium Chloride (Nacl 0.9% 1000 Ml) 1,000 mls @ 75 mls/hr IV DIRECT [facility] Last Admin: 12/01/17 06:14 Dose: 75 mls/hr Latanoprost (Xalatan 0.005%) 1 drops OU QHS [facility] Metoprolol Tartrate (Lopressor) 25 mg PO BID [facility] Last Admin: 12/01/17 10:02 Dose: 25 mg Miscellaneous Medication (Dorzolamide Hcl [Dorzolamide Hcl]) 10 ml OP QDAY [facility] Miscellaneous Medication (Loteprednol Etabonate [Lotemax 0.5%]) 1 drop OP QID [facility] Pantoprazole Sodium (Protonix) 40 mg PO DAILY [facility] Last Admin: 12/01/17 10:01 Dose: 40 mg Potassium Chloride (K-Dur) 10 meq PO QDAY [facility] Last Admin: 12/01/17 10:03 Dose: 10 meq Pravastatin Sodium (Pravachol) 40 mg PO QHS [facility] Prazosin HCl (Minipress) 5 mg PO Q12HR [facility] Last Admin: 12/01/17 10:43 Dose: 5 mg I HAVE REVIEWED AND RECONCILED THE MEDICATIONS Review of Systems - Review of Systems All systems: negative (as noted in the HPI.) Exam - Constitutional Vital Signs: Temp Pulse Resp BP Pulse Ox 98.3 F 66 20 133/38 99 12/01/17 14:56 12/01/17 14:56 12/01/17 14:56 12/01/17 14:56 12/01/17 14:56 General appearance: mild distress - EENT Eyes: PERRL, EOM intact ENT: hearing intact, clear oral mucosa, no thrush - Neck Neck: supple, normal ROM - Respiratory Respiratory effort: normal Respiratory: bilateral: CTA - Cardiovascular Rhythm: regular Heart Sounds: Present: S1 & S2 Extremities: no ischemia, No edema - Gastrointestinal General gastrointestinal: Present: soft, non-tender, non-distended - Integumentary Integumentary: Present: clear, warm, dry - Neurologic Neurological: alert and oriented x3 - Labs CBC & Chem 7: 12/01/17 16:40 11/30/17 12:31 Lab Results: Laboratory Results - last 24 hr 11/30/17 11/30/17 12/01/17 12:31 Unknown 16:40 WBC 8.1 RBC 3.35 L Hgb 7.7 L Hct 25.7 L MCV 77 L MCH 23 L MCHC 30 L RDW 21.8 H Plt Count 224 Urine Color Yellow Urine Turbidity Clear Urine pH 6.0 Ur Specific Hines 1.013 Urine Protein <15 mg/dl Urine Glucose (UA) Neg Urine Ketones Neg Urine Blood Mod Urine Nitrite Neg Urine Bilirubin Neg Urine Urobilinogen < 2.0 Ur Leukocyte Esterase Neg Urine WBC (Auto) 1.0 Urine RBC (Auto) 36.0 Blood Type O NEGATIVE Antibody Screen Negative Crossmatch See Detail Assessment and Plan - Patient Problems (1) Symptomatic anemia Current Visit: Yes Status: Acute Plan to address problem: - Severe recurrent anemia; sees Heme at the [facility] but not bone marrow disorder by report (but has not had a bone marrow bx by their report). - Has become transfusion and IV iron dependent, with severe disability. - Needs further Heme w/u, but EGD/colon/capsule to r/o AVMs would be indicated. - Will get Cards to Risk Stratify given his debilitating CHF (I wonder how much of this is due to anemia). - Place on clears tomorrow, and consider an EGD/colonoscopy Sunday, with capsule endoscopy as needed.
[2017-12-01] MEDS: PRAVACHOL PO SCH (21:33)
[2017-12-01] MEDS: XALATAN 0.005% OU SCH (21:33)
[2017-12-02 06:21] LABS: Hematocrit 26.8 % (35.5-45.6); Hemoglobin 8.5 gm/dl (11.8-15.2); Mean Corpuscular HGB Conc 32 % (32-34); Mean Corpuscular Hemoglobin 25 pg (28-32); Mean Corpuscular Volume 78 fl (84-94); Platelet Count 193 K/mm3 (140-440); Red Blood Count 3.45 M/mm3 (3.65-5.03); Red Cell Distribution Width 22.3 % (13.2-15.2)
[2017-12-02 06:29] LABS: BUN/Creatinine Ratio 20; Blood Urea Nitrogen 20 mg/dL (9-20); Calcium 7.7 mg/dL (8.4-10.2); Hemolysis Index 7
[2017-12-02] MEDS: ALPHAGAN P 0.15% OU SCH ×3 (07:26→22:21)
[2017-12-02] MEDS: NACL 0.9% 1000 ML 1,000 ML IV SCH (07:28)
[2017-12-02 07:33] LABS: Anisocytosis 2+; Hypochromasia 2+; Total Cells Counted 100
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
[2017-12-02] MEDS: VITAMIN C PO SCH (09:41)
[2017-12-02] MEDS: LASIX PO SCH (09:41)
[2017-12-02] MEDS: PROTONIX PO SCH (09:41)
[2017-12-02] MEDS: PROSCAR PO SCH (09:41)
[2017-12-02] MEDS: FEOSOL PO SCH (09:41)
[2017-12-02] MEDS: OSCAL PO SCH (09:41)
[2017-12-02] MEDS: K-DUR PO SCH (09:41)
[2017-12-02] MEDS: LOPRESSOR PO SCH ×2 (09:49→22:00)
[2017-12-02] MEDS: MINIPRESS PO SCH ×2 (09:50→22:00)
--- NOTE | 2017-12-02 11:15 | Consultation ---
History of Present Illness Consult date: 12/02/17 Past History Past Medical History: anemia, heart failure, hypertension, hyperlipidemia Past Surgical History: Other (BKA; pericadectomy) Social history: lives with family. denies: smoking, alcohol abuse Family history: no significant family history Medications and Allergies Allergies Allergy/AdvReac Type Severity Reaction Status Date / Time No Known Allergies Allergy Verified 11/30/17 11:30 Home Medications Medication Instructions Recorded Confirmed Last Taken Type Ascorbic Acid [Vitamin C] 500 mg PO QDAY 11/08/17 11/30/17 Unknown History Aspirin 81 mg PO QDAY 11/08/17 11/30/17 Unknown History Brimonidine Tartrate [Brimonidine 1 drop OU Q8HR 11/08/17 11/30/17 Unknown History Tartrate 0.15%] Calcium Carbonate [Calcium] 500 mg PO QDAY 11/08/17 11/30/17 Unknown History Dorzolamide HCl 10 ml OP QDAY 11/08/17 11/30/17 Unknown History Ferrous Sulfate [Iron] 325 mg PO QDAY 11/08/17 11/30/17 Unknown History Finasteride [Proscar] 5 mg PO QDAY 11/08/17 11/30/17 Unknown History Furosemide [Lasix TAB] 40 mg PO QDAY 11/08/17 11/30/17 Unknown History Loteprednol Etabonate [Lotemax 1 - 2 drop OP QID 11/08/17 11/30/17 Unknown History 0.5%] Metoprolol [Lopressor TAB] 25 mg PO BID 11/08/17 11/30/17 Unknown History Omeprazole 40 mg PO QDAY 11/08/17 11/30/17 Unknown History Potassium Chloride [Klor-Con 10] 10 meq PO QDAY 11/08/17 11/30/17 Unknown History Simvastatin 20 mg PO QHS 11/08/17 11/30/17 Unknown History Terazosin HCl 10 mg PO QDAY 11/08/17 11/30/17 Unknown History Travoprost [Travatan Z 0.004%] 2.5 ml OP QDAY 11/08/17 11/30/17 Unknown History Active Meds: Active Medications Ascorbic Acid (Vitamin C) 500 mg PO QDAY [facility] Last Admin: 12/02/17 09:41 Dose: 500 mg Brimonidine Tartrate (Alphagan P 0.15%) 1 drops OU Q8HR [facility] Last Admin: 12/02/17 07:26 Dose: 1 drops Calcium Carbonate/Glycine (Oscal) 1,250 mg PO QDAY [facility] Last Admin: 12/02/17 09:41 Dose: 1,250 mg Ferrous Sulfate (Feosol) 325 mg PO QDAY [facility] Last Admin: 12/02/17 09:41 Dose: 325 mg Finasteride (Proscar) 5 mg PO QDAY [facility] Last Admin: 12/02/17 09:41 Dose: 5 mg Furosemide (Lasix) 40 mg PO QDAY [facility] Last Admin: 12/02/17 09:41 Dose: 40 mg Sodium Chloride (Nacl 0.9% 1000 Ml) 1,000 mls @ 75 mls/hr IV DIRECT [facility] Last Admin: 12/02/17 07:28 Dose: 75 mls/hr Latanoprost (Xalatan 0.005%) 1 drops OU QHS [facility] Last Admin: 12/01/17 21:33 Dose: 1 drops Metoprolol Tartrate (Lopressor) 25 mg PO BID [facility] Last Admin: 12/02/17 09:49 Dose: Not Given Miscellaneous Medication (Dorzolamide Hcl [Dorzolamide Hcl]) 10 ml OP QDAY [facility] Miscellaneous Medication (Loteprednol Etabonate [Lotemax 0.5%]) 1 drop OP QID [facility] Pantoprazole Sodium (Protonix) 40 mg PO DAILY [facility] Last Admin: 12/02/17 09:41 Dose: 40 mg Potassium Chloride (K-Dur) 10 meq PO QDAY [facility] Last Admin: 12/02/17 09:41 Dose: 10 meq Pravastatin Sodium (Pravachol) 40 mg PO QHS [facility] Last Admin: 12/01/17 21:33 Dose: 40 mg Prazosin HCl (Minipress) 5 mg PO Q12HR [facility] Last Admin: 12/02/17 09:50 Dose: Not Given Physical Examination Vital Signs Temp Pulse Resp BP Pulse Ox 98.7 F 67 18 136/55 100 11/30/17 11:30 11/30/17 11:30 11/30/17 11:30 11/30/17 11:30 11/30/17 11:30 Results 12/02/17 05:25 12/02/17 05:25 CBC 12/01/17 12/02/17 Range/Units 16:40 05:25 WBC 8.1 7.8 (4.5-11.0) K/mm3 RBC 3.35 L 3.45 L (3.65-5.03) M/mm3 Hgb 7.7 L 8.5 L (11.8-15.2) gm/dl Hct 25.7 L 26.8 L (35.5-45.6) % Plt Count 224 193 (140-440) K/mm3 Comprehensive Metabolic Panel 12/02/17 Range/Units 05:25 Sodium 141 (137-145) mmol/L Potassium 3.5 L (3.6-5.0) mmol/L Chloride 104.6 (98-107) mmol/L Carbon Dioxide 25 (22-30) mmol/L BUN 20 (9-20) mg/dL Creatinine 1.0 (0.8-1.5) mg/dL Glucose 88 (75-100) mg/dL Calcium 7.7 L (8.4-10.2) mg/dL Assessment and Plan 87yo WM who is well known to me: 1. Symptomatic anemia 2. GIB 3. h/o cad/cabg/pericardiectomy 4. h/o diastolic hf 5. h/o frequent pacs Given advanced age and multiple co-morbidities, pt is at least intermediate risk for contemplated procedure. There no no cardiac contraindications - may proceed.
[2017-12-02] MEDS ORDERED: GOLYTELY PO ONE (20:00)
--- NOTE | 2017-12-02 20:14 | Gastroenterology Progress Note ---
Assessment and Plan - Patient Problems (1) Symptomatic anemia Current Visit: Yes Status: Acute Plan to address problem: - Severe recurrent anemia; sees Heme at the [facility] but not bone marrow disorder by report (but has not had a bone marrow bx by family report). - Has become transfusion and IV iron dependent, with severe disability. - Needs further Heme w/u, but EGD/colon/capsule to r/o AVMs would be indicated. - Cards has cleared to proceed with understanding patient is at increased/ moderate risk. - EGD/colonoscopy Sunday, with capsule endoscopy as needed. Subjective Date of service: 12/02/17 Principal diagnosis: Anemia Interval history: The patient has done well today without N/V/abdominal pain. He has baseline SOB , but it is not worsened. Cards recs noted and appreciated. Objective - Constitutional Vitals: Temp Pulse Resp BP Pulse Ox 97.8 F 66 16 127/37 96 12/02/17 14:21 12/02/17 14:21 12/02/17 14:21 12/02/17 14:21 12/02/17 14:21 General appearance: no acute distress - Respiratory Respiratory effort: normal Respiratory: bilateral: CTA - Cardiovascular Rhythm: regular Heart Sounds: Present: S1 & S2 - Extremities Extremities: no ischemia, No edema - Gastrointestinal General gastrointestinal: Present: soft, non-tender, non-distended - Labs CBC & Chem 7: 12/02/17 05:25 12/02/17 05:25 Labs: Laboratory Results - last 24 hr 11/30/17 12/02/17 12/02/17 12:31 05:25 05:25 WBC 7.8 RBC 3.45 L Hgb 8.5 L Hct 26.8 L MCV 78 L MCH 25 L MCHC 32 RDW 22.3 H Plt Count 193 Add Manual Diff Complete Total Counted 100 Seg Neuts % (Manual) 84.0 H Band Neutrophils % 0 Lymphocytes % (Manual) 5.0 L Reactive Lymphs % (Man) 0 Monocytes % (Manual) 8.0 H Eosinophils % (Manual) 2.0 Basophils % (Manual) 1.0 Metamyelocytes % 0 Myelocytes % 0 Promyelocytes % 0 Blast Cells % 0 Nucleated RBC % Not Reportable Seg Neutrophils # Man 6.6 Band Neutrophils # 0.0 Lymphocytes # (Manual) 0.4 L Abs React Lymphs (Man) 0.0 Monocytes # (Manual) 0.6 Eosinophils # (Manual) 0.2 Basophils # (Manual) 0.1 Metamyelocytes # 0.0 Myelocytes # 0.0 Promyelocytes # 0.0 Blast Cells # 0.0 WBC Morphology Not Reportable Hypersegmented Neuts Not Reportable Hyposegmented Neuts Not Reportable Hypogranular Neuts Not Reportable Smudge Cells Not Reportable Toxic Granulation Not Reportable Toxic Vacuolation Not Reportable Dohle Bodies Not Reportable Pelger-Huet Anomaly Not Reportable Chilo Rods Not Reportable Platelet Estimate Appears normal Clumped Platelets Not Reportable Plt Clumps, EDTA Not Reportable Large Platelets Not Reportable Giant Platelets Not Reportable Platelet Satelliting Not Reportable Plt Morphology Comment Not Reportable RBC Morphology Not Reportable Dimorphic RBCs Not Reportable Polychromasia Not Reportable Hypochromasia 2+ Poikilocytosis Not Reportable Anisocytosis 2+ Microcytosis Not Reportable Macrocytosis Not Reportable Spherocytes Not Reportable Pappenheimer Bodies Not Reportable Sickle Cells Not Reportable Target Cells Not Reportable Tear Drop Cells Not Reportable Ovalocytes Not Reportable Helmet Cells Not Reportable [place] Bodies Not Reportable [place] Rings Not Reportable [place] Cells Not Reportable Bite Cells Not Reportable Crenated Cell Not Reportable Elliptocytes Not Reportable Acanthocytes (Spur) Not Reportable Rouleaux Not Reportable Hemoglobin C Crystals Not Reportable Schistocytes Not Reportable Malaria parasites Not Reportable Ronn Bodies Not Reportable Hem Pathologist Commnt No Sodium 141 Potassium 3.5 L Chloride 104.6 Carbon Dioxide 25 Anion Gap 15 BUN 20 Creatinine 1.0 Estimated GFR > 60 BUN/Creatinine Ratio 20 Glucose 88 Calcium 7.7 L Albumin Blood Type O NEGATIVE Antibody Screen Negative Crossmatch See Detail 12/02/17 05:25 WBC RBC Hgb Hct MCV MCH MCHC RDW Plt Count Add Manual Diff Total Counted Seg Neuts % (Manual) Band Neutrophils % Lymphocytes % (Manual) Reactive Lymphs % (Man) Monocytes % (Manual) Eosinophils % (Manual) Basophils % (Manual) Metamyelocytes % Myelocytes % Promyelocytes % Blast Cells % Nucleated RBC % Seg Neutrophils # Man Band Neutrophils # Lymphocytes # (Manual) Abs React Lymphs (Man) Monocytes # (Manual) Eosinophils # (Manual) Basophils # (Manual) Metamyelocytes # Myelocytes # Promyelocytes # Blast Cells # WBC Morphology Hypersegmented Neuts Hyposegmented Neuts Hypogranular Neuts Smudge Cells Toxic Granulation Toxic Vacuolation Dohle Bodies Pelger-Huet Anomaly Chilo Rods Platelet Estimate Clumped Platelets Plt Clumps, EDTA Large Platelets Giant Platelets Platelet Satelliting Plt Morphology Comment RBC Morphology Dimorphic RBCs Polychromasia Hypochromasia Poikilocytosis Anisocytosis Microcytosis Macrocytosis Spherocytes Pappenheimer Bodies Sickle Cells Target Cells Tear Drop Cells Ovalocytes Helmet Cells Starks-[place] Bodies [place] Rings [place] Cells Bite Cells Crenated Cell Elliptocytes Acanthocytes (Spur) Rouleaux Hemoglobin C Crystals Schistocytes Malaria parasites Ronn Bodies Hem Pathologist Commnt Sodium Potassium Chloride Carbon Dioxide Anion Gap BUN Creatinine Estimated GFR BUN/Creatinine Ratio Glucose Calcium Albumin 3.3 L Blood Type Antibody Screen Crossmatch
[2017-12-02] MEDS: PRAVACHOL PO SCH (22:18)
[2017-12-02] MEDS: XALATAN 0.005% OU SCH (22:19)
[2017-12-03] MEDS: ALPHAGAN P 0.15% OU SCH ×2 (06:06→14:00)
[2017-12-03] MEDS ORDERED: WATER FOR IRRIG STERILE IR ONE ×2 (08:11→09:57)
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
--- NOTE | 2017-12-03 09:48 | Anesthesia Day of Surgery ---
Anesthesia Day of Surgery - Day of Surgery Patient Examined: Yes Patient H&P Reviewed: Yes Patient is NPO: Yes Beta Blockers: Yes
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
[2017-12-03] MEDS: VITAMIN C PO SCH (10:00)
[2017-12-03] MEDS: LOPRESSOR PO SCH (10:00)
[2017-12-03] MEDS: PROSCAR PO SCH (10:00)
[2017-12-03] MEDS: K-DUR PO SCH (10:00)
[2017-12-03] MEDS: PROTONIX PO SCH (10:00)
[2017-12-03] MEDS: MINIPRESS PO SCH (10:00)
[2017-12-03] MEDS: OSCAL PO SCH (10:00)
[2017-12-03] MEDS: FEOSOL PO SCH (10:00)
[2017-12-03] MEDS: LASIX PO SCH (10:00)
[2017-12-03 11:25] LABS: Hematocrit 29.4 % (35.5-45.6); Hemoglobin 9.2 gm/dl (11.8-15.2); Mean Corpuscular HGB Conc 31 % (32-34); Mean Corpuscular Volume 78 fl (84-94); Platelet Count 212 K/mm3 (140-440); Red Blood Count 3.78 M/mm3 (3.65-5.03)
[2017-12-03 11:29] LABS: Mean Corpuscular Hemoglobin 24 pg (28-32); Red Cell Distribution Width 23.3 % (13.2-15.2)
[2017-12-03] MEDS ORDERED: DIPRIVAN 10 MG/ML IV ONE ×2 (11:36→11:39)
[2017-12-03] MEDS ORDERED: AMIDATE IV ONE (11:36)
[2017-12-03 11:44] LABS: BUN/Creatinine Ratio 14; Blood Urea Nitrogen 14 mg/dL (9-20); Hemolysis Index 9
--- NOTE | 2017-12-03 12:27 | Operative Report ---
Operative Report Operative Report: Date of procedure: 12/03/2017 Preprocedure diagnosis: Severe iron deficiency anemia requiring iron infusions. Post procedure diagnosis: Extensive diverticulosis throughout. No evidence of neoplasia. Procedure: Colonoscopy to the cecum Endoscopist: Dr. Fermin Anesthesia: Monitored anesthesia care per anesthesia department Estimated blood loss: 0 Medications: Monitored anesthesia care. See separate report by anesthesia for details. After careful discussion of the nature and purpose of the procedure as well as details of the technique risks benefits and alternatives the patient gave consent. Please see recent history and physical from the office. The patient was placed in the left lateral decubitus position and medicated per anesthesia. A rectal exam was performed sphincter tone was normal there were no masses palpable. The O2 Medtech 570 scope was passed transanally and advanced under continuous direct vision without difficulty to the cecum. The colon was well prepared. The cecum revealed scattered diverticula. The ascending colon revealed moderate diverticulosis. The transverse colon, descending colon, and sigmoid colon revealed extensive diverticulosis throughout. The rectum was normal on forward and retroflexed views. The procedure was well-tolerated overall and the patient was observed in recovery. Conclusions: Extensive diverticulosis throughout the colon including the cecum. Plan: Repeat colonoscopy when necessary in light of his age. Signed electronically: Torey Fermin M.D.
--- NOTE | 2017-12-03 12:30 | Operative Report ---
Operative Report Operative Report: Date of procedure: 12/03/2017 Procedure: Esophagogastroduodenoscopy Preprocedure diagnosis: Severe iron deficiency anemia requiring chronic iron infusions. Post procedure diagnosis: Gastric antral vascular ectasias (GAVE), large hiatus hernia Endoscopist: Dr. Fermin Anesthesia: Monitored anesthesia care per anesthesia department Medications: Propofol per anesthesia Estimated blood loss: 0 After careful discussion of the nature and purpose of the procedure as well as details the technique risks benefits and alternatives consent was obtained. The patient was placed in the left lateral decubitus position and medicated per anesthesia. The tip of the [employer] EQ 570 video scope was passed per orum under direct vision into the esophagus and advanced into the stomach and descending duodenum. The descending duodenum the duodenal bulb and pylorus were symmetrical and normal. The scope was withdrawn into the stomach and the stomach then gently insufflated with air. The antrum revealed an extensive, striated pattern of vascular ectasias consistent with " watermelon stomach". The stomach was further insufflated and the scope was then retroflexed and partially withdrawn. The cardia revealed a large hiatus hernia. The fundus and body of the stomach were within normal limits and easily distensible.The scope was then withdrawn in the forward position. The esophagogastric junction was at 35 cm. The esophageal body was normal throughout. The procedure was was well tolerated and the patient was observed in recovery. 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 Plan: Continue iron infusions. PPI therapy. Consideration of sessions of ablation if anemia cannot be controlled with conservative means. Electronically signed: Torey Fermin MD
--- NOTE | 2017-12-03 13:12 | Discharge Summary ---
Providers - Providers Date of Admission: 11/30/17 14:31 Attending physician: AUSTEN PEDROZA MD 12/01/17 04:50 Consult to Physician [CONS] Routine Consulting Provider: CHING ASHFORD Reason For Exam: GI bleed Place consult to:: DR. ASHFORD Notified:: Arianna Phone number called:: [phone] Was contact made?: Yes If yes, spoke with:: MARCELLA Time called:: 10:00 Comment:: CELI NOTIFIED 12/01/17 18:33 Consult to Physician [CONS] Routine Consulting Provider: MAGALY SEXTON Reason For Exam: chf Place consult to:: DR. SEXTON Notified:: DR. SEXTON Phone number called:: [phone] Was contact made?: Yes If yes, spoke with:: AZALEA Time called:: 19:08 Comment:: CELI NOTIFIED Primary care physician: SHIPPING AND RECEIVING CLERK Hospitalization Condition: Stable Procedures: EGD: [facility] Hospital course: 87-year-old male who is presenting with shortness of breath with exertion. Patient states that he was here on November 08 to have a blood transfusion at that time secondary to anemia. Patient has for the last 3 weeks increased shortness of breath. Patient also states that he has has some exertional chest discomfort and exertional dizziness. The patient was diagnosed with chronic blood loss from multiple lesions in his stomach, and had been iron and transfusion dependent. He has recently received iron infusion and also blood transfusion. Presented with weakness, shortness of breath and chest pain found to have symptomatic anemia. The patient was transfused. He then went on to have EGD which showed watermelon stomach. Patient was recommended to continue PPI and iron supplements. The patient will have to follow up with GI as an outpatient and may be a candidate for ablation if his symptoms continue to worsen. Discharge diagnosis Symptomatic anemia Chronic blood loss anemia Iron deficiency anemia Chronic gastrointestinal bleeding from stomach Hypertension Chronic diastolic CHF Coronary artery disease with angina due to his anemia Hyperlipidemia Glaucoma BPH Disposition: TO HOME OR SELFCARE Time spent for discharge: 33 minutes Core Measure Documentation - Palliative Care Palliative Care/ Comfort Measures: Not Applicable - Core Measures Any of the following diagnoses?: none Exam - Physical Exam Narrative exam: General.: Appears well, no distress, nontoxic HEENT: Moist mucous membranes, extraocular muscles intact, no lymphadenopathy Neck: supple Cardiac: S1-S2 heard Lungs: clear to auscultation bilaterally Abdomen: soft , nontender, nondistended, bowel sounds positive Extremities: no edema clubbing or cyanosis, status post left lower extremity amputation Skin: no rash or lesions Neurologic: no gross focal deficits Psych: appropriate behavior, appropriate mood, corporative, judgment intact - Constitutional Vitals: Temp Pulse Resp BP Pulse Ox 98.7 F 73 20 129/52 98 12/03/17 12:22 12/03/17 12:52 12/03/17 12:52 12/03/17 12:52 12/03/17 12:52 Plan Follow up with: PRIMARY MD RAJANI [Primary Care Provider] - 3-5 Days BENSON CACERES MD [Staff Physician] - 7 Days Prescriptions: Ferrous Sulfate [Iron] 325 mg PO QDAY #30 tablet Omeprazole 40 mg PO QDAY #30 capsule.
--- NOTE | 2017-12-03 13:21 | Post Anesthesia Evaluation ---
- Post Anesthesia Evaluation Patient Participated: Yes Airway Patent: Yes Stable Respiratory Function: Yes Nausea/Vomiting: No Temp > 96.8F: Yes Pain Manageable: Yes Adequeate Hydration: Yes Anesthesia Complications: No
[2017-12-03 14:47] VITALS: BP 131/49
== END 2017-12-03 17:07 | disposition home or self-care (01) | DRG 378 ==
LOC: ED 10:22 → 3A 14:31
PROVIDERS: ADMIT Internal Medicine; ATTEND Internal Medicine
PROC: 30233N1 Transfusion of Nonautologous Red Blood Cells into Peripheral Vein, Percutaneous Approach (ICD-10-PCS; 2017-12-01)
PROC: 0DJ08ZZ Inspection of Upper Intestinal Tract, Via Natural or Artificial Opening Endoscopic (ICD-10-PCS; principal; 2017-12-03)
PROC: 0DJD8ZZ Inspection of Lower Intestinal Tract, Via Natural or Artificial Opening Endoscopic (ICD-10-PCS; 2017-12-03)
DX: K31.811 Angiodysplasia of stomach and duodenum with bleeding (principal); I50.32 Chronic diastolic (congestive) heart failure; D50.0 Iron deficiency anemia secondary to blood loss (chronic); K57.31 Diverticulosis of large intestine without perforation or abscess with bleeding; N40.0 Benign prostatic hyperplasia without lower urinary tract symptoms; K44.9 Diaphragmatic hernia without obstruction or gangrene; R06.02 Shortness of breath; I25.119 Atherosclerotic heart disease of native coronary artery with unspecified angina pectoris; I11.0 Hypertensive heart disease with heart failure; E78.5 Hyperlipidemia, unspecified; H40.9 Unspecified glaucoma; Z89.512 Acquired absence of left leg below knee; Z95.1 Presence of aortocoronary bypass graft; Z79.82 Long term (current) use of aspirin; Z79.899 Other long term (current) drug therapy
CPT/HCPCS: 36415; 71045; 80048; 81001; 82040; 83880; 84484; 85007; 85025; 85027; 85610; 85730; 86850; 86900; 86901; 86920; 93005; 93010; A9270-GY; J2704; J7030; P9016

== ENCOUNTER 2018-01-18 14:54 | Inpatient (IN) | payer MEDICARE, OTHER ==
[2018-01-18 16:09] LABS: Hematocrit 28.3 % (35.5-45.6); Hemoglobin 8.9 gm/dl (11.8-15.2); Mean Corpuscular HGB Conc 32 % (32-34); Mean Corpuscular Volume 81 fl (84-94); Platelet Count 251 K/mm3 (140-440); Red Blood Count 3.49 M/mm3 (3.65-5.03)
[2018-01-18 16:15] LABS: Calcium 7.9 mg/dL (8.4-10.2)
--- NOTE | 2018-01-18 16:25 | XRay Report ---
FINAL REPORT PROCEDURE: XR CHEST 1V AP TECHNIQUE: Chest radiograph anteroposterior view. CPT 09429 HISTORY: Weakness COMPARISON: No prior studies are available for comparison. FINDINGS: Heart: Moderately enlarged Mediastinum/Vessels: Moderate congestion. Midline sternotomy wires vascular clips. Lungs/Pleural space: Shallow inspiration with lower lung zone atelectasis.. COPD. Patchy atelectasis left lung base. Bony thorax: No acute osseous abnormality. Life support devices: None. IMPRESSION: Central congestion. Patchy atelectasis left lung base.
[2018-01-18 16:27] LABS: INR 0.89 (0.87-1.13)
[2018-01-18 16:30] LABS: Mean Corpuscular Hemoglobin 26 pg (28-32)
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
[2018-01-18 17:05] LABS: Band Neutrophils # (Manual) 0.1 K/mm3; Total Cells Counted 100
[2018-01-18 17:06] LABS: Anisocytosis 1+; Hypochromasia 1+
[2018-01-18 17:07] LABS: Poikilocytosis 1+; Tear Drop Cells Few
--- NOTE | 2018-01-18 17:29 | Cat Scan Report ---
FINAL REPORT PROCEDURE: CT HEAD/BRAIN WO CON TECHNIQUE: Computerized tomography of the head was performed without contrast material. HISTORY: weakness, transient confusion COMPARISON: No prior studies are available for comparison. FINDINGS: Skull and scalp: Chronic postoperative changes right frontal skull. 1 centimeter lytic or cystic change in the high left parietal skull Paranasal sinuses: Fluid and sclerotic change each mastoid.. Ventricles and subarachnoid spaces: Normal. Cerebrum: No evidence of hemorrhage, acute infarction or mass . Cerebellum and brainstem: No evidence of hemorrhage, acute infarction or mass. Vasculature: Normal. Comments: Moderate diffuse atrophy. Encephalomalacia right frontal brain. Chronic hygromas change. IMPRESSION: No evidence of acute intracranial pathology seen at this time.. No hyperdense MCA sign.
[2018-01-18] MEDS ORDERED: ASPIRIN PO ONE (17:41)
--- NOTE | 2018-01-18 18:00 | History and Physical Report ---
History of Present Illness Chief complaint: I got dizzy, and passed out History of present illness: 87 M with HTN, CHF, Angiodysplasia, Iron Deficiency Anemia, COPD presents to ED for evaluation presents to ED for evaluation. 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 Pt states that he was unable to speak, and subsequently lost consciousness. Pt was caught by nursing staff and did not fall to the ground. EMS was notified and patient was transported to [facility] for evaluation. Pt seen and evaluated in ED and found to have symptoms consistent with acute stroke but symptoms resolved during hospital stay. . No reports of fever, chills, CP, Palpitations, NVD, Syncope, Productive cough, BRBPR, unintentional weight loss, night sweats. Pt admitted to telemetry. Past History Past Medical History: anemia, COPD, heart failure, hypertension Past Surgical History: appendectomy, cholecystectomy, Other (Left BKA,cardiac surgery) Social history: Family history: no significant family history (reviewed) Medications and Allergies Allergies Allergy/AdvReac Type Severity Reaction Status Date / Time No Known Allergies Allergy Verified 11/30/17 11:30 Home Medications Medication Instructions Recorded Confirmed Last Taken Type Aspirin 81 mg PO QAM 11/08/17 01/18/18 01/18/18 History Finasteride [Proscar] 5 mg PO QPM 11/08/17 01/18/18 01/17/18 History Metoprolol [Lopressor TAB] 25 mg PO BID 11/08/17 01/18/18 01/18/18 History Potassium Chloride [Klor-Con 10] 10 meq PO QAM 11/08/17 01/18/18 01/18/18 History Terazosin HCl 10 mg PO QPM 11/08/17 01/18/18 01/17/18 History Ascorbic Acid [Vitamin C] 250 mg PO QAM 01/18/18 01/18/18 01/18/18 History AtorvaSTATin [Lipitor] 20 mg PO QHS 01/18/18 01/18/18 01/17/18 History Brimonidine Tartrate [Brimonidine 1 drop OD BID 01/18/18 01/18/18 01/18/18 History Tartrate 0.2%] Calcium Carbonate/Vitamin D3 1 each PO BID 01/18/18 01/18/18 01/18/18 History [Calcium 250-Vit D3 125 Tablet] Ferrous Sulfate [Iron] 325 mg PO QAM 01/18/18 01/18/18 01/18/18 History Furosemide [Lasix] 80 mg PO QAM 01/18/18 01/18/18 01/18/18 History Latanoprost 0.005% [Xalatan 0.005%] 1 drop OD QPM 01/18/18 01/18/18 01/17/18 History Omeprazole 40 mg PO QAM 01/18/18 01/18/18 01/18/18 History Polyvinyl Alcohol [Liquitears] 1 - 2 drops OP PRN PRN 01/18/18 01/18/18 Unknown History Review of Systems Constitutional: no weight loss, no weight gain, no fever, no chills, no sweats Ears, nose, mouth and throat: no ear pain, no ear discharge, no tinnitis, no decreased hearing, no nose pain, no nasal congestion Cardiovascular: syncope, no chest pain, no orthopnea, no palpitations, no rapid/ irregular heart beat Respiratory: no cough with sputum, no excessive sputum, no hemoptysis, no shortness of breath Gastrointestinal: no nausea, no vomiting, no diarrhea, no constipation, no change in bowel habits Genitourinary Male: no hematuria, no flank pain, no discharge, no urinary frequency, no urinary hesitancy, no nocturia Rectal: no pain, no incontinence, no bleeding Musculoskeletal: no neck stiffness, no neck pain, no shooting arm pain, no arm numbness/tingling, no low back pain, no shooting leg pain Integumentary: no rash, no pruritis, no redness, no sores Neurological: no head injury, no transient paralysis, no paralysis, no weakness , no parathesias, no numbness, no tingling Psychiatric: no anxiety, no memory loss, no change in sleep habits, no sleep disturbances, no insomnia, no hypersomnia, no change in appetite Endocrine: no cold intolerance, no heat intolerance, no polyphagia, no excessive thirst, no polydipsia, no polyuria, no nocturia Hematologic/Lymphatic: no easy bruising, no easy bleeding, no lymphadenopathy, no lymphedema Allergic/Immunologic: no urticaria, no allergic rhinitis, no wheezing, no persistent infections, no anaphylaxis Exam - Constitutional Vitals: Temp Pulse Resp BP Pulse Ox 97.9 F 69 134/52 99 01/18/18 15:23 01/18/18 15:23 01/18/18 15:23 01/18/18 15:23 General appearance: Present: no acute distress, well-nourished - EENT Eyes: Present: PERRL ENT: hearing intact, clear oral mucosa - Neck Neck: Present: supple, normal ROM - Respiratory Respiratory effort: normal Respiratory: bilateral: CTA - Cardiovascular Heart Sounds: Present: S1 & S2. Absent: rub, click - Extremities Extremities: pulses symmetrical, No edema Peripheral Pulses: within normal limits - Abdominal General gastrointestinal: Present: soft, non-tender, non-distended, normal bowel sounds Male genitourinary: Present: normal - Integumentary Integumentary: Present: clear, warm, dry - Musculoskeletal Musculoskeletal: gait normal, strength equal bilaterally - Psychiatric Psychiatric: appropriate mood/affect, intact judgment & insight - Neurologic Neurologic: CNII-XII intact, moves all extremities Results - Labs CBC & Chem 7: 01/18/18 15:37 01/18/18 15:37 Labs: Abnormal lab results 01/18/18 01/18/18 Range/Units 15:37 15:37 RBC 3.49 L (3.65-5.03) M/mm3 Hgb 8.9 L (11.8-15.2) gm/dl Hct 28.3 L (35.5-45.6) % MCV 81 L (84-94) fl MCH 26 L (28-32) pg RDW 17.0 H (13.2-15.2) % Seg Neuts % (Manual) 74.0 H (40.0-70.0) % BUN 29 H (9-20) mg/dL Glucose 109 H (75-100) mg/dL Calcium 7.9 L (8.4-10.2) mg/dL Assessment and Plan - Patient Problems (1) CVA (cerebral vascular accident) Current Visit: Yes Status: Suspected Qualifiers: Precerebral and cerebral artery: posterior cerebral artery Laterality of affected vessel: bilateral Plan to address problem: Stroke protocol: CT Head, MRI, MRA, Echo, Carotid Doppler, Echo, PT, PT/Speech therapy, antiplatelet therapy, lipid panel, EEG, (2) COPD (chronic obstructive pulmonary disease) Current Visit: Yes Status: Acute Qualifiers: COPD type: chronic bronchitis Plan to address problem: supplemental oxygen, nebulizer therapy, NIPPV as clinically indicated, (3) HTN (hypertension) Current Visit: Yes Status: Acute Qualifiers: Hypertension type: essential hypertension Qualified Code(s): I10 - Essential (primary) hypertension Plan to address problem: monitor bp q shift, continue medical management. (4) CHF (congestive heart failure) Current Visit: Yes Status: Acute Qualifiers: Congestive heart failure type: diastolic Congestive heart failure chronicity: acute on chronic Qualified Code(s): I50.33 - Acute on chronic diastolic (congestive) heart failure Plan to address problem: Afterload reduction, monitor blood pressure, fluid restriction, monitor uop q shift, daily weight, continue medical management, supplemental oxygen, Chest X ray (5) DVT prophylaxis Current Visit: Yes Status: Acute
[2018-01-18] MEDS ORDERED: REGLAN PO PRN (19:01)
[2018-01-18] MEDS ORDERED: TYLENOL PO PRN (19:01)
[2018-01-18] MEDS ORDERED: PHENERGAN PR PRN (19:01)
[2018-01-18] MEDS ORDERED: DULCOLAX PR PRN (19:01)
[2018-01-18] MEDS ORDERED: ZOFRAN IV PRN (19:01)
[2018-01-18] MEDS ORDERED: SODIUM CHLORIDE FLUSH SYRINGE 10 ML IV PRN (19:01)
[2018-01-18] MEDS ORDERED: MILK OF MAGNESIA PO PRN (19:01)
[2018-01-19 04:47] VITALS: BP 118/31
[2018-01-19 05:26] LABS: Chol/HDL Ratio 2.7 %
[2018-01-19 06:35] LABS: Bilirubin,Urine NEG (Negative); Blood,Urine NEG (Negative); Color,Urine Yellow (Yellow); Protein,Urine <15 mg/dL mg/dL (Negative); Urobilinogen,Urine < 2.0 mg/dL (<2.0)
--- NOTE | 2018-01-19 09:50 | Progress Note ---
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 Eason's, office with AMS, CT head w/o contrast reported as no acute findings. 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 Morgan to see if he is available this weekend (no answer-his voice mail not setup). MRI brain pending, added ASA , no statin b/c LDL only 46 -Suspect acute on chronic diastolic heart failure: consulted cardiology -Acute encephalopathy, poa: monitor telemetry for arrhy -Syncope, suspect autonomic dysfunction, poa: await mri -Chronic anemia: monitor h/h -CKD 3: repeat bmp am -COPD: treat with nebs History Interval history: Patient was seen and examined. Follow-up on current diagnosis. Overnight uneventful. Patient denies any chest pain, shortness breath, nausea/vomiting or severe headaches. Imaging, nursing note, chart, labs and old chart reviewed. Discussed with patient. Patient states he is here because of dizziness without loss of consciousness/syncope or headaches. Hospitalist Physical - Physical exam Narrative exam: GEN: WDWN, NAD, AWAKE, ALERT, ORIENTATED x 3 HEENT: NCAT, EOMI, PERRL, OP Clear NECK: supple, no adenopathy, no thyromegaly, no JVD CVS/HEART: RRR, NORMAL S1S2, pulses present bilaterally CHEST/LUNGS: diminished bilateral, Symmetrical chest expansion, good air entry bilaterally GI/Abdomen: soft, NTND, good bowel sounds, no guarding or rebound /Bladder: no suprapubic tenderness, no CVA or paraspinal tenderness EXT/Skin: no c/c/e, no obvious rash MSK: FROM x 3, left BKA prosthesis in place Neuro: CN 2-12 grossly intact except left with evidence of cataract, no new focal deficits Psych: calm - Constitutional Vitals: Temp Pulse Resp BP Pulse Ox 97.6 F 65 18 118/31 95 01/19/18 04:46 01/19/18 04:46 01/19/18 04:46 01/19/18 04:46 01/19/18 04:46 General appearance: Present: no acute distress, well-nourished Results - Labs CBC & Chem 7: 01/18/18 15:37 01/18/18 15:37 Labs: Laboratory Last Values WBC 7.7 K/mm3 (4.5-11.0) 01/18/18 15:37 RBC 3.49 M/mm3 (3.65-5.03) L 01/18/18 15:37 Hgb 8.9 gm/dl (11.8-15.2) L 01/18/18 15:37 Hct 28.3 % (35.5-45.6) L 01/18/18 15:37 MCV 81 fl (84-94) L 01/18/18 15:37 MCH 26 pg (28-32) L 01/18/18 15:37 MCHC 32 % (32-34) 01/18/18 15:37 RDW 17.0 % (13.2-15.2) H 01/18/18 15:37 Plt Count 251 K/mm3 (140-440) 01/18/18 15:37 Add Manual Diff Complete 01/18/18 15:37 Total Counted 100 01/18/18 15:37 Seg Neuts % (Manual) 74.0 % (40.0-70.0) H 01/18/18 15:37 Band Neutrophils % 1.0 % 01/18/18 15:37 Lymphocytes % (Manual) 16.0 % (13.4-35.0) 01/18/18 15:37 Reactive Lymphs % (Man) 0 % 01/18/18 15:37 Monocytes % (Manual) 6.0 % (0.0-7.3) 01/18/18 15:37 Eosinophils % (Manual) 2.0 % (0.0-4.3) 01/18/18 15:37 Basophils % (Manual) 1.0 % (0.0-1.8) 01/18/18 15:37 Metamyelocytes % 0 % 01/18/18 15:37 Myelocytes % 0 % 01/18/18 15:37 Promyelocytes % 0 % 01/18/18 15:37 Blast Cells % 0 % 01/18/18 15:37 Nucleated RBC % Not Reportable 01/18/18 15:37 Seg Neutrophils # Man 5.7 K/mm3 (1.8-7.7) 01/18/18 15:37 Band Neutrophils # 0.1 K/mm3 01/18/18 15:37 Lymphocytes # (Manual) 1.2 K/mm3 (1.2-5.4) 01/18/18 15:37 Abs React Lymphs (Man) 0.0 K/mm3 01/18/18 15:37 Monocytes # (Manual) 0.5 K/mm3 (0.0-0.8) 01/18/18 15:37 Eosinophils # (Manual) 0.2 K/mm3 (0.0-0.4) 01/18/18 15:37 Basophils # (Manual) 0.1 K/mm3 (0.0-0.1) 01/18/18 15:37 Metamyelocytes # 0.0 K/mm3 01/18/18 15:37 Myelocytes # 0.0 K/mm3 01/18/18 15:37 Promyelocytes # 0.0 K/mm3 01/18/18 15:37 Blast Cells # 0.0 K/mm3 01/18/18 15:37 WBC Morphology Not Reportable 01/18/18 15:37 Hypersegmented Neuts Not Reportable 01/18/18 15:37 Hyposegmented Neuts Not Reportable 01/18/18 15:37 Hypogranular Neuts Not Reportable 01/18/18 15:37 Smudge Cells Not Reportable 01/18/18 15:37 Toxic Granulation Not Reportable 01/18/18 15:37 Toxic Vacuolation Not Reportable 01/18/18 15:37 Dohle Bodies Not Reportable 01/18/18 15:37 Pelger-Huet Anomaly Not Reportable 01/18/18 15:37 Chilo Rods Not Reportable 01/18/18 15:37 Platelet Estimate Appears normal 01/18/18 15:37 Clumped Platelets Not Reportable 01/18/18 15:37 Plt Clumps, EDTA Not Reportable 01/18/18 15:37 Large Platelets Not Reportable 01/18/18 15:37 Giant Platelets Not Reportable 01/18/18 15:37 Platelet Satelliting Not Reportable 01/18/18 15:37 Plt Morphology Comment Not Reportable 01/18/18 15:37 RBC Morphology Not Reportable 01/18/18 15:37 Dimorphic RBCs Not Reportable 01/18/18 15:37 Polychromasia Not Reportable 01/18/18 15:37 Hypochromasia 1+ 01/18/18 15:37 Poikilocytosis 1+ 01/18/18 15:37 Anisocytosis 1+ 01/18/18 15:37 Microcytosis Not Reportable 01/18/18 15:37 Macrocytosis Not Reportable 01/18/18 15:37 Spherocytes Not Reportable 01/18/18 15:37 Pappenheimer Bodies Not Reportable 01/18/18 15:37 Sickle Cells Not Reportable 01/18/18 15:37 Target Cells Not Reportable 01/18/18 15:37 Tear Drop Cells Few 01/18/18 15:37 Ovalocytes Not Reportable 01/18/18 15:37 Helmet Cells Not Reportable 01/18/18 15:37 [place] Bodies Not Reportable 01/18/18 15:37 [place] Rings Not Reportable 01/18/18 15:37 [place] Cells Not Reportable 01/18/18 15:37 Bite Cells Not Reportable 01/18/18 15:37 Crenated Cell Not Reportable 01/18/18 15:37 Elliptocytes 1+ 01/18/18 15:37 Acanthocytes (Spur) Not Reportable 01/18/18 15:37 Rouleaux Not Reportable 01/18/18 15:37 Hemoglobin C Crystals Not Reportable 01/18/18 15:37 Schistocytes Not Reportable 01/18/18 15:37 Malaria parasites Not Reportable 01/18/18 15:37 Ronn Bodies Not Reportable 01/18/18 15:37 Hem Pathologist Commnt No 01/18/18 15:37 PT 12.5 Sec. (12.2-14.9) 01/18/18 15:37 INR 0.89 (0.87-1.13) 01/18/18 15:37 Sodium 142 mmol/L (137-145) 01/18/18 15:37 Potassium 4.2 mmol/L (3.6-5.0) 01/18/18 15:37 Chloride 101.0 mmol/L (98-107) 01/18/18 15:37 Carbon Dioxide 27 mmol/L (22-30) 01/18/18 15:37 Anion Gap 18 mmol/L 01/18/18 15:37 BUN 29 mg/dL (9-20) H 01/18/18 15:37 Creatinine 1.5 mg/dL (0.8-1.5) 01/18/18 15:37 Estimated GFR 44 ml/min 01/18/18 15:37 BUN/Creatinine Ratio 19 % 01/18/18 15:37 Glucose 109 mg/dL (75-100) H 01/18/18 15:37 Calcium 7.9 mg/dL (8.4-10.2) L 01/18/18 15:37 Phosphorus 3.40 mg/dL (2.5-4.5) 01/18/18 15:37 Troponin T 0.010 ng/mL (0.00-0.029) 01/18/18 15:37 Triglycerides 114 mg/dL (2-149) 01/19/18 04:17 Cholesterol 108 mg/dL (50-199) 01/19/18 04:17 LDL Cholesterol Direct 46 mg/dL (50-130) L 01/19/18 04:17 HDL Cholesterol 40 mg/dL (40-59) 01/19/18 04:17 Cholesterol/HDL Ratio 2.70 % 01/19/18 04:17 TSH 2.110 mlU/mL (0.270-4.200) 01/18/18 15:37 Urine Color Yellow (Yellow) 01/18/18 04:35 Urine Turbidity Clear (Clear) 01/18/18 04:35 Urine pH 6.0 (5.0-7.0) 01/18/18 04:35 Ur Specific [place] 1.012 (1.003-1.030) 01/18/18 04:35 Urine Protein <15 mg/dl mg/dL (Negative) 01/18/18 04:35 Urine Glucose (UA) Neg mg/dL (Negative) 01/18/18 04:35 Urine Ketones Neg mg/dL (Negative) 01/18/18 04:35 Urine Blood Neg (Negative) 01/18/18 04:35 Urine Nitrite Neg (Negative) 01/18/18 04:35 Urine Bilirubin Neg (Negative) 01/18/18 04:35 Urine Urobilinogen < 2.0 mg/dL (<2.0) 01/18/18 04:35 Ur Leukocyte Esterase Neg (Negative) 01/18/18 04:35 Urine WBC (Auto) 1.0 /HPF (0.0-6.0) 01/18/18 04:35 Urine RBC (Auto) 1.0 /HPF (0.0-6.0) 01/18/18 04:35 U Epithel Cells (Auto) 1.0 /HPF (0-13.0) 01/18/18 04:35 Blood Type O NEGATIVE 01/18/18 15:37 Antibody Screen Negative 01/18/18 15:37
[2018-01-19] MEDS ORDERED: ECOTRIN PO SCH (10:00)
[2018-01-19] MEDS ORDERED: NON-FORMULARY (Brimonidine Tartrate [Brimonidine Tartrate 0.2%] 1 DROP) OD SCH (10:15)
[2018-01-19] MEDS ORDERED: VITAMIN C PO SCH (11:00)
[2018-01-19] MEDS ORDERED: BABY ASPIRIN PO SCH (11:00)
[2018-01-19] MEDS ORDERED: HEPARIN SUB-Q SCH (11:00)
[2018-01-19] MEDS ORDERED: ALPHAGAN P 0.15% OD SCH (12:00)
[2018-01-19] MEDS ORDERED: PROTONIX PO SCH (12:00)
[2018-01-19] MEDS ORDERED: LOPRESSOR PO SCH (12:00)
[2018-01-19] MEDS ORDERED: FEOSOL PO SCH (12:00)
[2018-01-19] MEDS ORDERED: K-DUR PO SCH (12:00)
--- NOTE | 2018-01-19 13:35 | Consultation ---
History of Present Illness Consult date: 01/19/18 History of present illness: patient seen and assessed full note dictated spoke to Dr. Chavez suspect vasovagal syncope Past History Past Medical History: anemia, COPD, heart failure, hypertension Past Surgical History: appendectomy, cholecystectomy, Other (Left BKA,cardiac surgery) Social history: Family history: no significant family history (reviewed) Medications and Allergies Allergies Allergy/AdvReac Type Severity Reaction Status Date / Time No Known Allergies Allergy Verified 11/30/17 11:30 Home Medications Medication Instructions Recorded Confirmed Last Taken Type Aspirin 81 mg PO QAM 11/08/17 01/18/18 01/18/18 History Finasteride [Proscar] 5 mg PO QPM 11/08/17 01/18/18 01/17/18 History Metoprolol [Lopressor TAB] 25 mg PO BID 11/08/17 01/18/18 01/18/18 History Potassium Chloride [Klor-Con 10] 10 meq PO QAM 11/08/17 01/18/18 01/18/18 History Terazosin HCl 10 mg PO QPM 11/08/17 01/18/18 01/17/18 History Ascorbic Acid [Vitamin C] 250 mg PO QAM 01/18/18 01/18/18 01/18/18 History AtorvaSTATin [Lipitor] 20 mg PO QHS 01/18/18 01/18/18 01/17/18 History Brimonidine Tartrate [Brimonidine 1 drop OD BID 01/18/18 01/18/18 01/18/18 History Tartrate 0.2%] Calcium Carbonate/Vitamin D3 1 each PO BID 01/18/18 01/18/18 01/18/18 History [Calcium 250-Vit D3 125 Tablet] Ferrous Sulfate [Iron] 325 mg PO QAM 01/18/18 01/18/18 01/18/18 History Furosemide [Lasix] 80 mg PO QAM 01/18/18 01/18/18 01/18/18 History Latanoprost 0.005% [Xalatan 0.005%] 1 drop OD QPM 01/18/18 01/18/18 01/17/18 History Omeprazole 40 mg PO QAM 01/18/18 01/18/18 01/18/18 History Polyvinyl Alcohol [Liquitears] 1 - 2 drops OP PRN PRN 01/18/18 01/18/18 Unknown History Active Meds: Active Medications Acetaminophen (Tylenol) 650 mg PO Q4H PRN PRN Reason: Pain, Mild (1-3) Ascorbic Acid (Vitamin C) 250 mg PO QAM [facility] Aspirin (Baby Aspirin) 81 mg PO QAM [facility] Atorvastatin Calcium (Lipitor) 20 mg PO QHS [facility] Bisacodyl (Dulcolax) 10 mg [place] QDAY PRN PRN Reason: Constipation Brimonidine Tartrate (Alphagan P 0.15%) 1 drops OD BID [facility] Calcium/Vitamin D ([place] D 250 Mg-125 Unit) 1 each PO BID [facility] Ferrous Sulfate (Feosol) 325 mg PO QAM [facility] Finasteride (Proscar) 5 mg PO QHS [facility] Heparin Sodium (Porcine) (Heparin) 5,000 unit SUB-Q Q12H [facility] Latanoprost (Xalatan 0.005%) 1 drops OD QHS [facility] Magnesium Hydroxide (Milk Of Magnesia) 30 ml PO Q4H PRN PRN Reason: Constipation Metoclopramide HCl (Reglan) 10 mg PO Q6H PRN PRN Reason: Nausea And Vomiting Metoprolol Tartrate (Lopressor) 25 mg PO BID [facility] Ondansetron HCl (Zofran) 4 mg IV Q8H PRN PRN Reason: N/V unrelieved by Reglan Pantoprazole Sodium (Protonix) 40 mg PO DAILY [facility] Potassium Chloride (K-Dur) 10 meq PO QDAY [facility] Prazosin HCl (Minipress) 5 mg PO QHS [facility] Promethazine HCl (Phenergan) 25 mg [place] Q6H PRN PRN Reason: Nausea And Vomiting Sodium Chloride (Sodium Chloride Flush Syringe 10 Ml) 10 ml IV PRN PRN PRN Reason: LINE FLUSH Physical Examination - Vital Signs Vital Signs: Vital Signs BP Pulse Ox 134/47 98 01/18/18 15:13 01/18/18 15:13 Results - Laboratory Findings CBC and BMP: 01/18/18 15:37 01/18/18 15:37 Abnormal Lab Findings: Abnormal Labs 01/18/18 01/18/18 01/19/18 15:37 15:37 04:17 RBC 3.49 L Hgb 8.9 L Hct 28.3 L MCV 81 L MCH 26 L RDW 17.0 H Seg Neuts % (Manual) 74.0 H BUN 29 H Glucose 109 H Calcium 7.9 L LDL Cholesterol Direct 46 L
--- NOTE | 2018-01-19 13:36 | Consultation ---
History of Present Illness Consult date: 01/19/18 Requesting physician: SUZY IBRAHIM Consult reason: syncope History of present illness: This is an 87-year-old gentleman with history of hypertension hyperlipidemia coronary disease bypass constrictive pericarditis, who was in Dr. lucy finney office yesterday for follow-up after a negative carotid ultrasound study patient stood up and was feeling lightheaded did not pass out patient's affect down patient did not pass had no palpitation was sent to the hospital for further evaluation as per the daughter patient has had episodes of lightheadedness when getting up patient is on Lasix 80 mg daily for right leg swelling and shortness of breath. No syncopal episode was noted no chest pain no palpitations no seizure type activity noted Past History Past Medical History: anemia, CAD (bypass and constrictive pericarditis), COPD, heart failure, hypertension Past Surgical History: appendectomy, cholecystectomy, Other (Left BKA,cardiac surgery) Social history: Family history: no significant family history (reviewed) Medications and Allergies Allergies Allergy/AdvReac Type Severity Reaction Status Date / Time No Known Allergies Allergy Verified 11/30/17 11:30 Home Medications Medication Instructions Recorded Confirmed Last Taken Type Aspirin 81 mg PO QAM 11/08/17 01/18/18 01/18/18 History Finasteride [Proscar] 5 mg PO QPM 11/08/17 01/18/18 01/17/18 History Metoprolol [Lopressor TAB] 25 mg PO BID 11/08/17 01/18/18 01/18/18 History Potassium Chloride [Klor-Con 10] 10 meq PO QAM 11/08/17 01/18/18 01/18/18 History Terazosin HCl 10 mg PO QPM 11/08/17 01/18/18 01/17/18 History Ascorbic Acid [Vitamin C] 250 mg PO QAM 01/18/18 01/18/18 01/18/18 History AtorvaSTATin [Lipitor] 20 mg PO QHS 01/18/18 01/18/18 01/17/18 History Brimonidine Tartrate [Brimonidine 1 drop OD BID 01/18/18 01/18/18 01/18/18 History Tartrate 0.2%] Calcium Carbonate/Vitamin D3 1 each PO BID 01/18/18 01/18/18 01/18/18 History [Calcium 250-Vit D3 125 Tablet] Ferrous Sulfate [Iron] 325 mg PO QAM 01/18/18 01/18/18 01/18/18 History Furosemide [Lasix] 80 mg PO QAM 01/18/18 01/18/18 01/18/18 History Latanoprost 0.005% [Xalatan 0.005%] 1 drop OD QPM 01/18/18 01/18/18 01/17/18 History Omeprazole 40 mg PO QAM 01/18/18 01/18/18 01/18/18 History Polyvinyl Alcohol [Liquitears] 1 - 2 drops OP PRN PRN 01/18/18 01/18/18 Unknown History Active Meds: Active Medications Acetaminophen (Tylenol) 650 mg PO Q4H PRN PRN Reason: Pain, Mild (1-3) Ascorbic Acid (Vitamin C) 250 mg PO QAM [facility] Aspirin (Baby Aspirin) 81 mg PO QAM [facility] Atorvastatin Calcium (Lipitor) 20 mg PO QHS [facility] Bisacodyl (Dulcolax) 10 mg [place] QDAY PRN PRN Reason: Constipation Brimonidine Tartrate (Alphagan P 0.15%) 1 drops OD BID [facility] Calcium/Vitamin D ([place] D 250 Mg-125 Unit) 1 each PO BID [facility] Ferrous Sulfate (Feosol) 325 mg PO QAM [facility] Finasteride (Proscar) 5 mg PO QHS [facility] Heparin Sodium (Porcine) (Heparin) 5,000 unit SUB-Q Q12H [facility] Latanoprost (Xalatan 0.005%) 1 drops OD QHS [facility] Magnesium Hydroxide (Milk Of Magnesia) 30 ml PO Q4H PRN PRN Reason: Constipation Metoclopramide HCl (Reglan) 10 mg PO Q6H PRN PRN Reason: Nausea And Vomiting Metoprolol Tartrate (Lopressor) 25 mg PO BID [facility] Ondansetron HCl (Zofran) 4 mg IV Q8H PRN PRN Reason: N/V unrelieved by Reglan Pantoprazole Sodium (Protonix) 40 mg PO DAILY [facility] Potassium Chloride (K-Dur) 10 meq PO QDAY [facility] Prazosin HCl (Minipress) 5 mg PO QHS [facility] Promethazine HCl (Phenergan) 25 mg [place] Q6H PRN PRN Reason: Nausea And Vomiting Sodium Chloride (Sodium Chloride Flush Syringe 10 Ml) 10 ml IV PRN PRN PRN Reason: LINE FLUSH Review of Systems All systems: negative (hpi) Physical Examination Vital Signs BP Pulse Ox 134/47 98 01/18/18 15:13 01/18/18 15:13 General appearance: no acute distress, well-nourished HEENT: Positive: PERRL, Mucus Membranes Moist Neck: Positive: neck supple, trachea midline Cardiac: Positive: Reg Rate and Rhythm, S1/S2. Negative: Audible Murmur Lungs: Positive: clear to auscultation, Normal Breath Sounds Neuro: Positive: Grossly Intact Abdomen: Positive: Soft, Active Bowel Sounds. Negative: Tender, Distended Male genitourinary: Positive: normal Skin: Positive: Clear Incision: Cardiac Cath Site Musculoskeletal: No Pain, Normal Range of Motion Extremities: Present: Other (left AKA). Absent: edema Results 01/18/18 15:37 01/18/18 15:37 Coagulation 01/18/18 Range/Units 15:37 PT 12.5 (12.2-14.9) Sec. INR 0.89 (0.87-1.13) Lipids 01/19/18 Range/Units 04:17 Triglycerides 114 (2-149) mg/dL Cholesterol 108 (50-199) mg/dL HDL Cholesterol 40 (40-59) mg/dL Cholesterol/HDL Ratio 2.70 % CBC 01/18/18 Range/Units 15:37 WBC 7.7 (4.5-11.0) K/mm3 RBC 3.49 L (3.65-5.03) M/mm3 Hgb 8.9 L (11.8-15.2) gm/dl Hct 28.3 L (35.5-45.6) % Plt Count 251 (140-440) K/mm3 Comprehensive Metabolic Panel 01/18/18 Range/Units 15:37 Sodium 142 (137-145) mmol/L Potassium 4.2 (3.6-5.0) mmol/L Chloride 101.0 (98-107) mmol/L Carbon Dioxide 27 (22-30) mmol/L BUN 29 H (9-20) mg/dL Creatinine 1.5 (0.8-1.5) mg/dL Glucose 109 H (75-100) mg/dL Calcium 7.9 L (8.4-10.2) mg/dL - Imaging and Cardiology Echo: report reviewed (normal LV function mild to moderate AI mild to moderate tricuspid regurgitation with mild pulmonary hypertension) EKG interpretations - Telemetry EKG Rhythm: Sinus Rhythm (sinus rhythm nonspecific ST-T is) Assessment and Plan Vasovagal possible syncope Constrictive pericarditis Acute on chronic renal insufficiency possibly secondary to vasomotor with history Lasix Hypertension Hyperlipidemia Coronary disease status post bypass Recommend decrease Lasix to 40 mg daily continue beta leigh therapy to statin patient had no arrhythmias on telemetry and is now orthostatic discussed this in detail with. Patient's and neurologist and family at bedside
--- NOTE | 2018-01-19 13:47 | Discharge Summary ---
Providers - Providers Date of Admission: 01/18/18 19:01 Date of discharge: 01/19/18 Attending physician: MONTSERRAT SALGADO 01/18/18 Consult to Physician [CONS] Routine Consulting Provider: RUCHI OLIVEIRA Reason For Exam: chf Place consult to:: [facility] Notified:: y Comment:: added to list 01/18/18 19:01 Occupational Therapy Evaluate and Treat [CONS] Routine Comment: Reason For Exam: Neuro deficits Physical Therapy Evaluation and Treat [CONS] Routine Comment: Reason For Exam: Neuro deficits 01/19/18 10:01 Consult to Physician [CONS] Routine Consulting Provider: MARIYA MORGAN Reason For Exam: Dizziness, with syncope Place consult to:: neuro Notified:: y Comment:: added to list 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 Eason's, office with AMS, CT head w/o contrast reported as no acute findings. pCXR reported as central congestion, patchy atelectasis left lung base -Dizziness with suspect vasovagal in nature, Dr. Morgan to see MRI brain pending, added ASA, no statin b/c LDL only 46 -Chronic diastolic heart failure w/o exacerbation d/w Cardiology, Dr. Huff -Acute encephalopathy, poa: monitor telemetry for arrhy -Syncope, suspect autonomic dysfunction, poa: await mri -Chronic anemia: monitor h/h -CKD 3: repeat bmp am -COPD: treat with nebs Disposition: DC-01 TO HOME OR SELFCARE Time spent for discharge: 35 minutes Core Measure Documentation - Palliative Care Palliative Care/ Comfort Measures: Not Applicable - Core Measures Any of the following diagnoses?: none - VTE Discharge Requirements Deep Vein Thrombosis/Pulmonary Embolism Present on Admission: No Has pt received <5 days of overlap therapy or INR<2.0: No Anticoagulant overlap therapy prescribed at discharge: No Contraindication No Overlap Therapy order at DC: Not Indicated Exam - Physical Exam Narrative exam: GEN: WDWN, NAD, AWAKE, ALERT, ORIENTATED x 3 HEENT: NCAT, EOMI, PERRL, OP Clear NECK: supple, no adenopathy, no thyromegaly, no JVD CVS/HEART: RRR, NORMAL S1S2, pulses present bilaterally CHEST/LUNGS: diminished bilateral, Symmetrical chest expansion, good air entry bilaterally GI/Abdomen: soft, NTND, good bowel sounds, no guarding or rebound /Bladder: no suprapubic tenderness, no CVA or paraspinal tenderness EXT/Skin: no c/c/e, no obvious rash MSK: FROM x 3, left BKA prosthesis in place Neuro: CN 2-12 grossly intact except left with evidence of cataract, no new focal deficits Psych: calm - Constitutional Vitals: Temp Pulse Resp BP Pulse Ox 97.6 F 65 18 118/31 95 01/19/18 04:46 01/19/18 04:46 01/19/18 04:46 01/19/18 04:46 01/19/18 04:46 Plan Activity: other (no strenous activity until cleared by pcp) Diet: low salt Follow up with: PRIMARY CARE, [Primary Care Provider] - 3-5 Days RUCHI OLIVEIRA MD [Staff Physician] - 7 Days Prescriptions: Furosemide [Lasix TAB] 40 mg PO QDAY #30 tablet
[2018-01-19 14:32] LABS: Iron 127 ug/dL (49-181); Total Iron Binding Capacity 402 mcg/dL (250-450)
--- NOTE | 2018-01-19 15:56 | Consultation ---
HISTORY OF PRESENT ILLNESS: This is an 87-year-old white male that presents to [facility] on repeat admission, has a prior medical history of being treated here previously for presyncopal episodes, low hematocrit, which was related to an iron deficiency anemia and suspected to be caused by iron deficiency anemia. He has had undergone GI tract studies including colonoscopy and endoscopy, which were unremarkable, although last year, he did have some suggestion of an area of bleeding in his duodenum. He apparently had skipped taking his iron tablets recently and has had more intense symptoms with not been feeling weak, dizzy and off balance. The patient has had an episode yesterday which occurred at Dr. Eason's office. He had gone there to get results of a carotid ultrasound, which were negative. While there, he was very ataxic and off balance. He did not pass out, but could not speak. He felt dizzy and otherwise was not doing well. This persisted for about 5 minutes. Since then, he has recovered somewhat, although he feels slightly jittery with tremulousness in his right arm. Speaking with family members, it seems like as if he has had several episodes like this in the past where he became off balance, dizzy, lightheaded. He would sit down and subsequently did recover after resting. Some of this in the past was obviously related to his iron deficiency anemia for which he has received several blood transfusions. ALLERGIES: He has no known allergies. SOCIAL HISTORY: Does not drink, does not smoke. PHYSICAL EXAMINATION: He is fully alert, responsive. Affect is appropriate. Speech is clear. 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 VITAL SIGNS: His current blood pressure is 118/31 and his O2 sats are 95%, pulse rate 65, respirations 18. NEUROLOGIC: Cranial nerves 2-12 are intact. Reflexes on the right leg are 2+. 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 He has a slight tremor of the right upper extremity, very mild. No parkinsonian features ____ masked facies, no rigidity is otherwise present. IMPRESSION: Episode of presyncope, suspect vasovagal, given the fact he was taking 80 mg Lasix. Also, he has a low hematocrit. We will recheck his iron levels. Await results of MRI/MRA and I did speak with Dr. Posadas. He was making rounds at that time. We went over this history of each of the episodes and they sound very vasovagal, they clear up when he sits down, they last for a period of time very similar to physiological vasovagal episodes due to hypotension and Dr. Posadas pointed out to me that the echocardiogram is essentially unremarkable at this point and we did get a verbal report that the carotid artery ultrasound and Dr. Eason's office was negative. PLAN: Monitor the patient's situation, check MRA, MRI, get iron levels and further monitor the patient's condition. CC: Dr. Eason. JOB# [id number] KATIA/YOJANA
[2018-01-19] MEDS ORDERED: NON-FORMULARY (Terazosin Hcl [Terazosin Hcl] 10 MG) PO SCH (18:00)
[2018-01-19] MEDS ORDERED: PROSCAR PO SCH (22:00)
[2018-01-19] MEDS ORDERED: XALATAN 0.005% OD SCH (22:00)
[2018-01-19] MEDS ORDERED: MINIPRESS PO SCH (22:00)
[2018-01-19] MEDS ORDERED: OYSCO D PO SCH (22:00)
[2018-01-20] MEDS ORDERED: NON-FORMULARY (Potassium Chloride [Klor-Con 10] 10 MEQ) PO SCH (10:00)
[2018-01-20] MEDS ORDERED: LASIX PO SCH (10:00)
[2018-01-20] MEDS ORDERED: NON-FORMULARY (Omeprazole [Omeprazole] 40 MG) PO SCH (10:00)
== END 2018-01-19 15:37 | disposition home or self-care (01) | DRG 73 ==
LOC: ED 14:54 → 4A 19:01
PROVIDERS: ADMIT Internal Medicine; ATTEND Internal Medicine
DX: G90.8 Other disorders of autonomic nervous system (principal); G93.40 Encephalopathy, unspecified; I50.32 Chronic diastolic (congestive) heart failure; I13.0 Hypertensive heart and chronic kidney disease with heart failure and stage 1 through stage 4 chronic kidney disease, or unspecified chronic kidney disease; I31.1 Chronic constrictive pericarditis; D50.0 Iron deficiency anemia secondary to blood loss (chronic); J44.9 Chronic obstructive pulmonary disease, unspecified; N40.0 Benign prostatic hyperplasia without lower urinary tract symptoms; N18.3 Chronic kidney disease, stage 3 (moderate); N28.9 Disorder of kidney and ureter, unspecified; E78.5 Hyperlipidemia, unspecified; I25.10 Atherosclerotic heart disease of native coronary artery without angina pectoris; Z95.1 Presence of aortocoronary bypass graft; Z89.512 Acquired absence of left leg below knee; Z90.49 Acquired absence of other specified parts of digestive tract; Z79.82 Long term (current) use of aspirin; Z79.899 Other long term (current) drug therapy
CPT/HCPCS: 36415; 70450; 71045; 80048; 80061; 81001; 83550; 84100; 84443; 84484; 85007; 85025; 85610; 86850; 86900; 86901; 93005; 93010; 93306; 93880

== ENCOUNTER 2020-11-03 12:47 | Observation (INO) | payer MEDICARE, OTHER ==
--- NOTE | 2020-11-03 14:02 | Event Note ---
ED Screening Note ED Screening Note: right leg swelling, pain and tingling x1 week hx of amputation left leg edema present to RLE with 2+ pitting doppler used and able to hear strong pt pulse chronic SOB which has worsened This initial assessment/diagnostic orders/clinical plan/treatment(s) is/are subject to change based on patients health status, clinical progression and re- assessment by fellow clinical providers in the ED. Further treatment and workup at subsequent clinical providers discretion. Patient/guardian urged not to elope from the ED as their condition may be serious if not clinically assessed and managed. Initial orders include: labs, CXR, US, EKG
--- NOTE | 2020-11-03 14:59 | Vascular Lab Report ---
VL venous duplex LE RT INDICATION / CLINICAL INFORMATION: right leg pain and swelling. TECHNIQUE: Duplex doppler imaging was performed using venous compression and other maneuvers. COMPARISON: None available. FINDINGS: No venous thrombosis is identified within the visualized extremity vasculature. ADDITIONAL FINDINGS: None. IMPRESSION: 1. No sonographic evidence for DVT in the visualized right lower extremity vasculature.. Signer Name: Te Humphrey MD Signed: 11/03/2020 2:55 PM Workstation Name: [id number]
--- NOTE | 2020-11-03 15:21 | XRay Report ---
CHEST 2 VIEWS INDICATION / CLINICAL INFORMATION: SOB. COMPARISON: 01/18/2018 FINDINGS: SUPPORT DEVICES: None. HEART / MEDIASTINUM: Changes of prior median sternotomy are again noted. There is enlargement of the cardiac silhouette LUNGS / PLEURA: There is patchy airspace opacities in the mid and lower lung zones bilaterally. No pn eumothorax. ADDITIONAL FINDINGS: No significant additional findings. IMPRESSION: 1. There are patchy airspace opacities in the mid and lower lung zones which could represent atelecta sis, edema, or evolving pneumonia Signer Name: Macario Sepulveda MD Signed: 11/03/2020 3:16 PM Workstation Name: [id number]
[2020-11-03 16:09] LABS: Basophils % (Auto) 0.4 % (0.0-1.8); Eosinophils # (Auto) 0.1 K/mm3 (0.0-0.4); Eosinophils % (Auto) 1.2 % (0.0-4.3); Hematocrit 37.7 % (35.5-45.6); Hemoglobin 12.1 gm/dl (11.8-15.2); Lymphocytes # (Auto) 0.6 K/mm3 (1.2-5.4); Lymphocytes % (Auto) 6.8 % (13.4-35.0); Mean Corpuscular HGB Conc 32 % (32-34); Mean Corpuscular Volume 90 fl (84-94); Monocytes # (Auto) 0.7 K/mm3 (0.0-0.8); Monocytes % (Auto) 8.5 % (0.0-7.3); Platelet Count 284 K/mm3 (140-440); Red Cell Distribution Width 15.6 % (13.2-15.2)
[2020-11-03 16:27] LABS: Albumin 3.5 g/dL (3.9-5); Calcium 8.1 mg/dL (8.4-10.2); INR 1.02 (0.87-1.13)
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
[2020-11-04] MEDS ORDERED: FUROSEMIDE 40 MG/4 ML INJ IV ONE (00:19)
--- NOTE | 2020-11-04 00:47 | Cat Scan Report ---
Examination: CT of the head without contrast Clinical information: Leg weakness. Stroke symptoms. Comparison: CT of the head, 01/18/2018 Technical: Multiple axial CT images of the head were obtained without intravenous contrast. Sagittal and coronal reformats were obtained. All CTs at this facility utilize dose reduction techniques inc luding automated exposure control, iterative reconstruction and weight based dosing when appropriate to reduce patient radiation dose to as low as reasonable achievable. Findings: INTRACRANIAL CONTENTS: There is no CT evidence of acute intracranial hemorrhage or large territorial infarct. Confluent region of hypodensity within the right frontal lobe is unchanged. There is mild ge neralized atrophy. No extra-axial fluid collection is identified ORBITS: The bilateral orbits and globes appear normal SKULL: Postsurgical changes from previous right frontal craniectomy are again noted. PARANASAL SINUSES / MASTOID AIR CELLS: Paranasal sinuses and mastoid air cells appear clear. Impression: 1. No CT evidence of acute intracranial process.. 2. Stable right frontal hypodensity likely related to postsurgical change. Signer Name: Ce Sanchez MD Signed: 11/04/2020 12:43 AM Workstation Name: [id number]
--- NOTE | 2020-11-04 01:01 | Cat Scan Report ---
Examination: CT of the lumbar spine without contrast Clinical information: Low back pain. Leg weakness. No history of trauma. Comparison: No relevant prior studies are available for comparison Technical: Multiple axial CT images of the lumbar spine were obtained without intravenous contrast. S agittal and coronal reformats were obtained. All CTs at this facility utilize dose reduction techniq ues including automated exposure control, iterative reconstruction and weight based dosing when appro priate to reduce patient radiation dose to as low as reasonable achievable. Findings: Alignment: There is mild anterolisthesis of L5 on S1 estimated at 5 mm. Vertebral body height is well maintained. No acute bony fracture is visualized. Mild to moderate multilevel discogenic degenerative changes are noted with mild to moderate disc spac e narrowing at the L4-L5 and L5-L1 levels. There is posterior disc protrusion at the L3-L4 level with mild narrowing of the canal. Limited visualization of intrapelvic contents demonstrates sigmoid diverticulosis. Impression: 1. Moderate multilevel degenerative changes of the lumbar spine as above. If there is persistent cli nical concern for focal neurologic symptoms then MRI of the lumbar spine would be helpful for additio nal evaluation. Signer Name: Ce Sanchez MD Signed: 11/04/2020 12:57 AM Workstation Name: [id number]
[2020-11-04] MEDS ORDERED: METOCLOPRAMIDE 10 MG TAB PO PRN (01:29)
[2020-11-04] MEDS ORDERED: MAGNESIUM HYDROXIDE (MOM) ORAL LIQD UDC PO PRN ×2 (01:29)
[2020-11-04] MEDS ORDERED: ACETAMINOPHEN 325 MG TAB PO PRN ×2 (01:29)
[2020-11-04] MEDS ORDERED: PROMETHAZINE 25 MG RECT SUPP PR PRN (01:29)
[2020-11-04] MEDS ORDERED: MORPHINE 2 MG/1 ML INJ IV PRN (01:29)
[2020-11-04] MEDS ORDERED: ONDANSETRON 4 MG/2 ML INJ IV PRN ×2 (01:29)
--- NOTE | 2020-11-04 01:43 | History and Physical Report ---
History of Present Illness Date of examination: 11/04/20 Date of admission: 11/04/20 00:27 Chief complaint: Lower Extremity Weakness History of present illness: 89-year-old male with known history of hypertension, COPD, anemia, CHF, dyslipidemia and history of glaucoma presents to the emergency room today with right leg weakness for the past 1 week. He has therefore been using crutches because of this weakness in his lower extremity. He has also been having some lower back pain but denies any trauma and denies any fall. He had called his master lay out specialist Dr. Eason who directed him to the emergency room for further evaluation. Patient denies any chest pain but has had some mild shortness of breath, no nausea vomiting, no headache or dizziness. He denies any fever or chills, denies any sick contacts. He denies any difficulty with his speech or swallowing. Work-up in the emergency room today chest x-ray reveals pulmonary edema, EKG shows atrial fibrillation, CT scan of the head did not reveal any acute abnormality. Patient is being admitted to be evaluated for possible CVA and CHF exacerbation. 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,Cataract surgery, Plate in skull ,Left BKA,) Social history: no significant social history Family history: no significant family history Medications and Allergies Allergies Allergy/AdvReac Type Severity Reaction Status Date / Time No Known Allergies Allergy Verified 11/30/17 11:30 Home Medications Medication Instructions Recorded Confirmed Last Taken Type Aspirin 81 mg PO QAM 11/08/17 01/18/18 01/18/18 History Finasteride [Proscar] 5 mg PO QPM 11/08/17 01/18/18 01/17/18 History Metoprolol [Lopressor TAB] 25 mg PO BID 11/08/17 01/18/18 01/18/18 History Potassium Chloride [Klor-Con 10] 10 meq PO QAM 11/08/17 01/18/18 01/18/18 History Terazosin HCl 10 mg PO QPM 11/08/17 01/18/18 01/17/18 History Ascorbic Acid [Vitamin C] 250 mg PO QAM 01/18/18 01/18/18 01/18/18 History AtorvaSTATin [Lipitor] 20 mg PO QHS 01/18/18 01/18/18 01/17/18 History Brimonidine Tartrate [Brimonidine 1 drop OD BID 01/18/18 01/18/18 01/18/18 History Tartrate 0.2%] Calcium Carbonate/Vitamin D3 1 each PO BID 01/18/18 01/18/18 01/18/18 History [Calcium 250-Vit D3 125 Tablet] Ferrous Sulfate [Iron 325 MG] 325 mg PO QAM 01/18/18 01/18/18 01/18/18 History Latanoprost 0.005% 1 drop OD QPM 01/18/18 01/18/18 01/17/18 History Omeprazole 40 mg PO QAM 01/18/18 01/18/18 01/18/18 History Polyvinyl Alcohol [Liquitears] 1 - 2 drops OP PRN PRN 01/18/18 01/18/18 Unknown History Furosemide [Lasix TAB] 40 mg PO QDAY #30 tablet 01/19/18 Unknown Rx Active Meds: Active Medications Acetaminophen (Acetaminophen 325 Mg Tab) 650 mg PO Q4H PRN PRN Reason: Pain, Mild (1-3) Acetaminophen (Acetaminophen 325 Mg Tab) 650 mg PO Q4H PRN PRN Reason: Pain MILD(1-3)/Fever >100.5/ROSENTHAL Aspirin (Aspirin 325 Mg Tab) 325 mg PO QDAY SEMAJ Atorvastatin Calcium (Atorvastatin 40 Mg Tab) 40 mg PO QHS SEMAJ Bisacodyl (Bisacodyl 10 Mg Rect Supp) 10 mg MA QDAY PRN PRN Reason: Constipation Furosemide (Furosemide 40 Mg/4 Ml Inj) 40 mg IV BID@0600,1800 SEMAJ Heparin Sodium (Porcine) (Heparin 5,000 Unit/1 Ml Vial) 5,000 unit SUB-Q Q8HR SEMAJ Magnesium Hydroxide (Magnesium Hydroxide (Mom) Oral Liqd Udc) 30 ml PO Q4H PRN PRN Reason: Constipation Magnesium Hydroxide (Magnesium Hydroxide (Mom) Oral Liqd Udc) 30 ml PO Q4H PRN PRN Reason: Constipation Metoclopramide HCl (Metoclopramide 10 Mg Tab) 10 mg PO Q6H PRN PRN Reason: Nausea And Vomiting Morphine Sulfate (Morphine 2 Mg/1 Ml Inj) 2 mg IV Q4H PRN PRN Reason: Pain, Moderate (4-6) Ondansetron HCl (Ondansetron 4 Mg/2 Ml Inj) 4 mg IV Q8H PRN PRN Reason: Nausea And Vomiting Ondansetron HCl (Ondansetron 4 Mg/2 Ml Inj) 4 mg IV Q8H PRN PRN Reason: Nausea And Vomiting Promethazine HCl (Promethazine 25 Mg Rect Supp) 25 mg MA Q6H PRN PRN Reason: Nausea And Vomiting Sodium Chloride (Sodium Chloride 0.9% 10 Ml Flush Syringe) 10 ml INJ PRN PRN PRN Reason: LINE FLUSH Sodium Chloride (Sodium Chloride 0.9% 10 Ml Flush Syringe) 10 ml IV BID SEMAJ Sodium Chloride (Sodium Chloride 0.9% 10 Ml Flush Syringe) 10 ml IV PRN PRN PRN Reason: LINE FLUSH Review of Systems Constitutional: no fever, no chills Ears, nose, mouth and throat: no nasal congestion, no sore throat Cardiovascular: no chest pain, no palpitations Respiratory: no cough, no shortness of breath Gastrointestinal: no abdominal pain, no nausea, no vomiting, no diarrhea Genitourinary Male: no dysuria, no hematuria, no nocturia Musculoskeletal: no neck pain, no low back pain Integumentary: no rash, no pruritis Neurological: weakness (lower extremities), no headaches, no confusion Psychiatric: no anxiety, no depression Exam - Constitutional Vitals: Temp Pulse Resp BP Pulse Ox 97.5 F L 79 16 154/71 95 11/03/20 23:23 11/03/20 23:23 11/03/20 23:23 11/03/20 23:23 11/03/20 23:23 General appearance: Present: no acute distress, well-nourished - EENT Eyes: Present: PERRL, EOM intact. Absent: scleral icterus ENT: hearing intact, clear oral mucosa, dentition normal - Neck Neck: Present: supple, normal ROM - Respiratory Respiratory effort: normal Respiratory: bilateral: rales - Cardiovascular Rhythm: irregularly irregular Heart Sounds: Present: S1 & S2, rub. Absent: systolic murmur, diastolic murmur - Extremities Extremities: no ischemia, pulses intact, pulses symmetrical, Full ROM, abnormal (Left BKA) Extremity abnormal: edema (Trace edema on the right lower extremity) Peripheral Pulses: within normal limits - Abdominal General gastrointestinal: Present: soft, non-tender, non-distended, normal bowel sounds. Absent: mass - Integumentary Integumentary: Present: clear, warm, dry. Absent: rash - Musculoskeletal Musculoskeletal: right sided weakness (Right lower extremity) - Psychiatric Psychiatric: appropriate mood/affect, intact judgment & insight, memory intact, cooperative - Neurologic Neurologic: CNII-XII intact, no focal deficits, moves all extremities Results - Labs CBC & Chem 7: 11/03/20 15:39 11/03/20 15:39 Labs: Abnormal lab results 11/03/20 11/03/20 Range/Units 15:39 15:39 RDW 15.6 H (13.2-15.2) % Lymph % (Auto) 6.8 L (13.4-35.0) % [place] % (Auto) 8.5 H (0.0-7.3) % Lymph # (Auto) 0.6 L (1.2-5.4) K/mm3 Seg Neutrophils % 83.1 H (40.0-70.0) % Potassium 3.4 L (3.6-5.0) mmol/L BUN 23 H (9-20) mg/dL Creatinine 1.5 H (0.8-1.3) mg/dL Glucose 113 H (75-100) mg/dL Calcium 8.1 L (8.4-10.2) mg/dL Alkaline Phosphatase 270 H (35-129) units/L NT-Pro-B Natriuret Pep 1222 H (0-900) pg/mL Albumin 3.5 L (3.9-5) g/dL Assessment and Plan - Patient Problems (1) CHF (congestive heart failure) Current Visit: No Status: Acute Plan to address problem: Patient admitted and placed on diuretics. Will monitor inputs and output and also monitor daily weight. Patient be scheduled for echocardiogram. We will also request follow-up by master lay out specialist. (2) HLD (hyperlipidemia) Current Visit: No Status: Chronic Qualifiers: Hyperlipidemia type: mixed hyperlipidemia Qualified Code(s): E78.2 - Mixed hyperlipidemia Plan to address problem: We will resume routine home medications and monitor lipid profile. (3) HTN (hypertension) Current Visit: No Status: Chronic Qualifiers: Hypertension type: essential hypertension Qualified Code(s): I10 - Essential (primary) hypertension Plan to address problem: We will resume routine home medications and monitor vital signs closely. (4) CVA (cerebral vascular accident) Current Visit: No Status: Suspected Qualifiers: Precerebral and cerebral artery: posterior cerebral artery Laterality of affected vessel: bilateral Plan to address problem: We will schedule patient for carotid Doppler and MRI of the brain. Consult to be placed to neurology for evaluation. (5) DVT prophylaxis Current Visit: No Status: Acute Plan to address problem: Patient placed on subcutaneous heparin. (6) Full code status Current Visit: Yes Status: Acute
[2020-11-04] MEDS ORDERED: FUROSEMIDE 40 MG/4 ML INJ IV SCH (06:00)
[2020-11-04] MEDS: HEPARIN 5,000 UNIT/1 ML VIAL SUB-Q SCH ×4 (06:52→22:37)
[2020-11-04] MEDS ORDERED: ASPIRIN 325 MG TAB PO SCH (10:00)
--- NOTE | 2020-11-04 10:39 | Event Note ---
Date: 11/04/20 Patient was admitted with lower extremity weakness, neuro work-up is in progress Will follow neuro work-up, cardiology evaluation and recommendations noted and appreciated, We will closely monitor the patient and adjust the management as needed
--- NOTE | 2020-11-04 11:12 | Consultation ---
History of Present Illness Consult date: 11/04/20 Requesting physician: ALEAH MARIN Consult reason: atrial fibrillation, congestive heart failure History of present illness: The pt is an 89 YO male with a past medical history of CAD s/p CABG, paroxysmal AFib/AFlutter, no anticoagulation secondary to anemia, AVM and GI bleeding, constrictive pericarditis s/p pericardial resection, HTN, DM, COPD, chronic respiratory failure requiring home O2, EMMANUEL. He is followed in our office by Dr. Vinny Eason. He presented with c/o BLE weakness for approx 1 week prior to arrival. He is also noted to have conversational dyspnea on evaluation, although he states this is chronic and unchanged from baseline. He denies any chest pain, palpitations, n/v, diaphoresis, dizziness or syncope. Head CT with NAF. Lumbar spine CT shows moderate multilevel degenerative changes, consider MRI of lumbar spine if there is persistent clinical concern for focal neurological symptoms per radiology. tte done 06/2018 showed EF 55-60%, mild LVH, grade III diastolic dysfunction, LA mild to mod enlarged, mild to mod AR. 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,Left BKA,) Social history: no significant social history Family history: no significant family history Medications and Allergies Allergies Allergy/AdvReac Type Severity Reaction Status Date / Time No Known Allergies Allergy Verified 11/30/17 11:30 Home Medications Medication Instructions Recorded Confirmed Last Taken Type Aspirin 81 mg PO QAM 11/08/17 01/18/18 01/18/18 History Finasteride [Proscar] 5 mg PO QPM 11/08/17 01/18/18 01/17/18 History Metoprolol [Lopressor TAB] 25 mg PO BID 11/08/17 01/18/18 01/18/18 History Potassium Chloride [Klor-Con 10] 10 meq PO QAM 11/08/17 01/18/18 01/18/18 History Terazosin HCl 10 mg PO QPM 11/08/17 01/18/18 01/17/18 History Ascorbic Acid [Vitamin C] 250 mg PO QAM 01/18/18 01/18/18 01/18/18 History AtorvaSTATin [Lipitor] 20 mg PO QHS 01/18/18 01/18/18 01/17/18 History Brimonidine Tartrate [Brimonidine 1 drop OD BID 01/18/18 01/18/18 01/18/18 History Tartrate 0.2%] Calcium Carbonate/Vitamin D3 1 each PO BID 01/18/18 01/18/18 01/18/18 History [Calcium 250-Vit D3 125 Tablet] Ferrous Sulfate [Iron 325 MG] 325 mg PO QAM 01/18/18 01/18/18 01/18/18 History Latanoprost 0.005% 1 drop OD QPM 01/18/18 01/18/18 01/17/18 History Omeprazole 40 mg PO QAM 01/18/18 01/18/18 01/18/18 History Polyvinyl Alcohol [Liquitears] 1 - 2 drops OP PRN PRN 01/18/18 01/18/18 Unknown History Furosemide [Lasix TAB] 40 mg PO QDAY #30 tablet 01/19/18 Unknown Rx Active Meds: Active Medications Acetaminophen (Acetaminophen 325 Mg Tab) 650 mg PO Q4H PRN PRN Reason: Pain MILD(1-3)/Fever >100.5/ROSENTHAL Aspirin (Aspirin 325 Mg Tab) 325 mg PO QDAY [facility] Last Admin: 11/04/20 09:25 Dose: 325 mg Documented by: Atorvastatin Calcium (Atorvastatin 40 Mg Tab) 40 mg PO QHS [facility] Bisacodyl (Bisacodyl 10 Mg Rect Supp) 10 mg AL QDAY PRN PRN Reason: Constipation Furosemide (Furosemide 40 Mg/4 Ml Inj) 40 mg IV BID@0600,1800 [facility] Last Admin: 11/04/20 06:53 Dose: 40 mg Documented by: Heparin Sodium (Porcine) (Heparin 5,000 Unit/1 Ml Vial) 5,000 unit SUB-Q Q8HR [facility] Last Admin: 11/04/20 06:52 Dose: 5,000 unit Documented by: Magnesium Hydroxide (Magnesium Hydroxide (Mom) Oral Liqd Udc) 30 ml PO Q4H PRN PRN Reason: Constipation Metoclopramide HCl (Metoclopramide 10 Mg Tab) 10 mg PO Q6H PRN PRN Reason: Nausea And Vomiting Morphine Sulfate (Morphine 2 Mg/1 Ml Inj) 2 mg IV Q4H PRN PRN Reason: Pain, Moderate (4-6) Ondansetron HCl (Ondansetron 4 Mg/2 Ml Inj) 4 mg IV Q8H PRN PRN Reason: Nausea And Vomiting Promethazine HCl (Promethazine 25 Mg Rect Supp) 25 mg AL Q6H PRN PRN Reason: Nausea And Vomiting Sodium Chloride (Sodium Chloride 0.9% 10 Ml Flush Syringe) 10 ml IV BID SEMAJ Last Admin: 11/04/20 09:25 Dose: 10 ml Documented by: Sodium Chloride (Sodium Chloride 0.9% 10 Ml Flush Syringe) 10 ml IV PRN PRN PRN Reason: LINE FLUSH Physical Examination Vital Signs Temp Pulse Resp BP Pulse Ox 97.8 F 87 28 H 128/60 99 11/03/20 12:57 11/03/20 12:57 11/03/20 12:57 11/03/20 12:57 11/03/20 12:57 Results 11/03/20 15:39 11/03/20 15:39 Cardiac Enzymes 11/03/20 Range/Units 15:39 AST 14 (5-40) units/L Coagulation 11/03/20 Range/Units 15:39 PT 13.3 (12.2-14.9) Sec. INR 1.02 (0.87-1.13) APTT 31.0 (24.2-36.6) Sec. CBC 11/03/20 Range/Units 15:39 WBC 8.3 (4.5-11.0) K/mm3 RBC 4.20 (3.65-5.03) M/mm3 Hgb 12.1 (11.8-15.2) gm/dl Hct 37.7 (35.5-45.6) % Plt Count 284 (140-440) K/mm3 Lymph # (Auto) 0.6 L (1.2-5.4) K/mm3 [place] # (Auto) 0.7 (0.0-0.8) K/mm3 Eos # (Auto) 0.1 (0.0-0.4) K/mm3 Baso # (Auto) 0.0 (0.0-0.1) K/mm3 Comprehensive Metabolic Panel 11/03/20 Range/Units 15:39 Sodium 141 (137-145) mmol/L Potassium 3.4 L (3.6-5.0) mmol/L Chloride 102.2 (98-107) mmol/L Carbon Dioxide 27 (22-30) mmol/L BUN 23 H (9-20) mg/dL Creatinine 1.5 H (0.8-1.3) mg/dL Glucose 113 H (75-100) mg/dL Calcium 8.1 L (8.4-10.2) mg/dL AST 14 (5-40) units/L ALT 9 (7-56) units/L Alkaline Phosphatase 270 H (35-129) units/L Total Protein 6.6 (6.3-8.2) g/dL Albumin 3.5 L (3.9-5) g/dL - Imaging and Cardiology Echo: report reviewed (06/2018 showed EF 55-60%, mild LVH, grade III diastolic dysfunction, LA mild to mod enlarged, mild to mod AR. ) EKG: report reviewed, image reviewed EKG interpretations - Telemetry EKG Rhythm: Atrial Fibrillation - EKG Supraventricular dysrhythmia: atrial fibrillation Assessment and Plan Resume home lopressor. Initiate cautious diuresis and f/u BMP in AM. Obtain tte. Neuro w/u in progress. Will follow. The patient has been seen in conjunction with Dr. Vinny Eason who agrees with the assessment and plan of care. - Patient Problems (1) Bilateral leg weakness Current Visit: Yes Status: Acute (2) CVA (cerebral vascular accident) Current Visit: Yes Status: Suspected Qualifiers: Precerebral and cerebral artery: posterior cerebral artery Laterality of affected vessel: bilateral (3) Acute heart failure with preserved ejection fraction (HFpEF) Current Visit: Yes Status: Acute (4) Paroxysmal atrial fibrillation Current Visit: Yes Status: Chronic Plan to address problem: no anticoagulation secondary to anemia, AVM and GI bleeding (5) CAD (coronary artery disease) Current Visit: Yes Status: Chronic (6) History of coronary artery bypass graft Current Visit: Yes Status: Chronic (7) JESUSITA (acute kidney injury) Current Visit: Yes Status: Acute (8) Chronic respiratory failure Current Visit: Yes Status: Chronic (9) COPD (chronic obstructive pulmonary disease) Current Visit: Yes Status: Chronic Qualifiers: COPD type: chronic bronchitis (10) HTN (hypertension) Current Visit: Yes Status: Chronic Qualifiers: Hypertension type: essential hypertension Qualified Code(s): I10 - Essent ial (primary) hypertension (11) Diabetes Current Visit: Yes Status: Chronic (12) Sleep apnea Current Visit: Yes Status: Chronic
--- NOTE | 2020-11-04 17:48 | Vascular Lab Report ---
VL carotid duplex BILAT INDICATION / CLINICAL INFORMATION: stroke. COMPARISON: None available. FINDINGS: Moderate plaque formation is demonstrated at both carotid bifurcations. Both proximal ICAs are also t ortuous, especially on the left. Velocity measurements and waveform analysis indicate less than 50% stenosis of the right internal car otid artery, according to NASCET criteria. Ascending criteria indicate mild (50-75%) stenosis of the left internal carotid artery. Normal antegrade flow is demonstrated in both vertebral arteries. IMPRESSION: 1. 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 Signer Name: Forrest King MD Signed: 11/04/2020 5:43 PM Workstation Name: [id number]
--- NOTE | 2020-11-04 17:48 | Event Note ---
Date: 11/04/20 I called patient's daughter Ms. Murphy Schmidt at [phone] and discussed in detail about patient's condition, tests and reports, consultants recommendations, pending tests, prognosis and treatment plan.I have answered all her questions, discussed CODE STATUS, full code at this point I encouraged her to call back if she has any new concerns. I informed patient's nurse of the above conversation
[2020-11-04] MEDS: METOPROLOL TARTRATE 25 MG TAB PO SCH ×2 (20:50→22:38)
[2020-11-05] MEDS: HEPARIN 5,000 UNIT/1 ML VIAL SUB-Q SCH ×2 (05:44→13:44)
[2020-11-05 06:00] LABS: Basophils # (Auto) 0.1 K/mm3 (0.0-0.1); Basophils % (Auto) 0.7 % (0.0-1.8); Eosinophils # (Auto) 0.2 K/mm3 (0.0-0.4); Eosinophils % (Auto) 2.3 % (0.0-4.3); Hematocrit 35.6 % (35.5-45.6); Hemoglobin 11.9 gm/dl (11.8-15.2); Lymphocytes # (Auto) 0.6 K/mm3 (1.2-5.4); Lymphocytes % (Auto) 8.6 % (13.4-35.0); Mean Corpuscular HGB Conc 33 % (32-34); Mean Corpuscular Volume 88 fl (84-94); Monocytes # (Auto) 0.7 K/mm3 (0.0-0.8); Monocytes % (Auto) 9.6 % (0.0-7.3); Platelet Count 260 K/mm3 (140-440); Red Blood Count 4.06 M/mm3 (3.65-5.03); Red Cell Distribution Width 15.6 % (13.2-15.2)
[2020-11-05 06:07] LABS: INR 1.03 (0.87-1.13)
[2020-11-05 06:37] LABS: Chol/HDL Ratio 2.77 %
[2020-11-05] MEDS: METOPROLOL TARTRATE 25 MG TAB PO SCH (09:35)
[2020-11-05] MEDS ORDERED: FUROSEMIDE 40 MG/4 ML INJ IV SCH (10:00)
--- NOTE | 2020-11-05 10:05 | Progress Note ---
Assessment and Plan Currently stable cardiac status. Pt appears clinically improved. Unable to perform MRI due to shrapnel in eye and skull. Pt may discharge from cardiology standpoint on home cardiac regimen. Recommend pt follow up in our office with Dr. Vinny Eason within 1-2 weeks ([phone]). The patient has been seen in conjunction with Dr. Vinny Eason who agrees with the assessment and plan of care. - Patient Problems (1) Bilateral leg weakness Current Visit: Yes Status: Acute (2) CVA (cerebral vascular accident) Current Visit: Yes Status: Suspected Qualifiers: Precerebral and cerebral artery: posterior cerebral artery Laterality of affected vessel: bilateral (3) Acute heart failure with preserved ejection fraction (HFpEF) Current Visit: Yes Status: Acute (4) Paroxysmal atrial fibrillation Current Visit: Yes Status: Chronic (5) CAD (coronary artery disease) Current Visit: Yes Status: Chronic (6) History of coronary artery bypass graft Current Visit: Yes Status: Chronic (7) JESUSITA (acute kidney injury) Current Visit: Yes Status: Acute (8) Chronic respiratory failure Current Visit: Yes Status: Chronic (9) COPD (chronic obstructive pulmonary disease) Current Visit: Yes Status: Chronic Qualifiers: COPD type: chronic bronchitis (10) HTN (hypertension) Current Visit: Yes Status: Chronic Qualifiers: Hypertension type: essential hypertension Qualified Code(s): I10 - Essential (primary) hypertension (11) Diabetes Current Visit: Yes Status: Chronic (12) Sleep apnea Current Visit: Yes Status: Chronic Subjective Date of service: 11/05/20 Principal diagnosis: BLE weakness; HF Interval history: pt ambulating around room, SOB greatly improved, states BLE weakness has also improved. pt states he feels ready for discharge home. tele reviewed - in AFib/AFlutter HR 70s overnight. Objective Last Vital Signs Temp 97.8 F 11/05/20 07:25 Pulse 63 11/05/20 07:25 Resp 18 11/05/20 07:25 BP 101/39 11/05/20 07:25 Pulse Ox 98 11/05/20 07:25 - Physical Examination General: No Apparent Distress HEENT: Positive: PERRL, Normocephaly, Mucus Membranes Moist Neck: Positive: neck supple, trachea midline Cardiac: Positive: irregularly irregular, S1/S2 Lungs: Positive: Decreased Breath Sounds Neuro: Positive: Grossly Intact Abdomen: Negative: Tender Skin: Negative: Rash Musculoskeletal: No Pain Extremities: Absent: edema - Labs and Meds Coagulation 11/05/20 Range/Units 05:35 PT 13.3 (12.2-14.9) Sec. INR 1.03 (0.87-1.13) Lipids 11/05/20 Range/Units 05:35 Triglycerides 72 (2-149) mg/dL Cholesterol 133 (50-199) mg/dL HDL Cholesterol 48 (40-59) mg/dL Cholesterol/HDL Ratio 2.77 % CBC 11/05/20 Range/Units 05:35 WBC 7.4 (4.5-11.0) K/mm3 RBC 4.06 (3.65-5.03) M/mm3 Hgb 11.9 (11.8-15.2) gm/dl Hct 35.6 (35.5-45.6) % Plt Count 260 (140-440) K/mm3 Lymph # (Auto) 0.6 L (1.2-5.4) K/mm3 [place] # (Auto) 0.7 (0.0-0.8) K/mm3 Eos # (Auto) 0.2 (0.0-0.4) K/mm3 Baso # (Auto) 0.1 (0.0-0.1) K/mm3 Comprehensive Metabolic Panel 11/05/20 Range/Units 05:35 Sodium 139 (137-145) mmol/L Potassium 3.6 (3.6-5.0) mmol/L Chloride 101.8 (98-107) mmol/L Carbon Dioxide 32 H (22-30) mmol/L BUN 28 H (9-20) mg/dL Creatinine 1.5 H (0.8-1.3) mg/dL Glucose 84 (75-100) mg/dL Calcium 8.0 L (8.4-10.2) mg/dL - Imaging and Cardiology EKG: report reviewed, image reviewed Echo: report reviewed (06/2018 showed EF 55-60%, mild LVH, grade III diastolic dysfunction, LA mild to mod enlarged, mild to mod AR. ) - Telemetry EKG Rhythm: Atrial Fibrillation
--- NOTE | 2020-11-05 14:48 | Discharge Summary ---
Providers - Providers Date of Admission: 11/04/20 00:27 Date of discharge: 11/05/20 Attending physician: KAMINI ABREU 11/04/20 00:31 Consult to Physician [CONS] Stat Comment: Consulting Provider: MAGALY SEXTON Physician Instructions: Reason For Exam: CHF, afib 11/04/20 01:30 Consult to Dietitian/Nutrition [CONS] Routine Physician Instructions: Reason For Exam: Reason for Consult: Nutrition Recommendations Reason for Consult: Diet education Occupational Therapy Evaluate and Treat [CONS] Routine Comment: Reason For Exam: Neuro deficits Physical Therapy Evaluation and Treat [CONS] Routine Comment: Reason For Exam: Neuro deficits Primary care physician: CONTACT ASSEMBLER Hospitalization Condition: Fair Disposition: DC/[place]-06 HOME UNDER HOME HL Time spent for discharge: 35 min Core Measure Documentation - Palliative Care Palliative Care/ Comfort Measures: Not Applicable - Core Measures Any of the following diagnoses?: none Exam - Constitutional Vitals: Temp Pulse Resp BP Pulse Ox 97.8 F 63 18 101/39 98 11/05/20 07:25 11/05/20 07:25 11/05/20 07:25 11/05/20 07:25 11/05/20 07:25 General appearance: Present: no acute distress, well-nourished - EENT Eyes: Present: PERRL, EOM intact - Neck Neck: Present: supple, normal ROM - Respiratory Respiratory effort: normal Respiratory: bilateral: diminished, negative: rales, rhonchi, wheezing - Cardiovascular Rhythm: regular Heart Sounds: Present: S1 & S2 - Extremities Extremities: no ischemia, No edema Extremity abnormal: other (Left AKA) - Abdominal General gastrointestinal: Present: soft, non-tender, non-distended, normal bowel sounds - Integumentary Integumentary: Present: clear, warm - Musculoskeletal Musculoskeletal: strength equal bilaterally, generalized weakness - Psychiatric Psychiatric: appropriate mood/affect, cooperative - Neurologic Neurologic: CNII-XII intact, moves all extremities Plan Activity: advance as tolerated, fall precautions Diet: other (Cardiac diet) Special Instructions: physical therapy, occupational therapy Additional Instructions: Fall precautions. If you have worsening symptoms contact MD or go to emergency room. Advised to see vascular surgeon Dr. Rj Mitchell in 2 weeks. For further evaluation of abnormal carotid Doppler. Follow up with cardiology Dr. Vinny Sexton within 1-2 weeks ([phone]). Follow up with: PRIMARY MD RAJANI [Primary Care Provider] - 7 Days RJ MITCHELL MD [Staff Physician] - 14 Days MAGALY SEXTON MD [Staff Physician] - 7 Days Prescriptions: AtorvaSTATin [Lipitor] 40 mg PO QHS #30 tablet
--- NOTE | 2020-11-05 14:54 | Event Note ---
Date: 11/05/20 I called patient's daughter and discussed in detail the discharge plan of Mr. Hendrickson Phillip [place] Gave the DC instructions, answered all her questions,
[2020-11-05 17:37] VITALS: BP 158/65
== END 2020-11-05 18:40 | disposition home health service (06) ==
LOC: ED 12:47 → 4A 11-04 00:27
PROVIDERS: ADMIT Internal Medicine Geriatric Medicine; ATTEND Internal Medicine
DX: I63.9 Cerebral infarction, unspecified (principal); J96.10 Chronic respiratory failure, unspecified whether with hypoxia or hypercapnia; I11.0 Hypertensive heart disease with heart failure; G47.30 Sleep apnea, unspecified; I48.0 Paroxysmal atrial fibrillation; I50.9 Heart failure, unspecified; I48.91 Unspecified atrial fibrillation; I77.89 Other specified disorders of arteries and arterioles; E11.9 Type 2 diabetes mellitus without complications; E78.5 Hyperlipidemia, unspecified; H40.9 Unspecified glaucoma; N40.0 Benign prostatic hyperplasia without lower urinary tract symptoms; H54.62 Unqualified visual loss, left eye, normal vision right eye; R29.703 NIHSS score 3; D64.9 Anemia, unspecified; Z90.49 Acquired absence of other specified parts of digestive tract; Z98.890 Other specified postprocedural states; Z98.49 Cataract extraction status, unspecified eye; Z79.82 Long term (current) use of aspirin; Z95.1 Presence of aortocoronary bypass graft
CPT/HCPCS: 36415; 70450; 71046; 72131; 80048; 80053; 80061; 83880; 85025; 85610; 85730; 93005; 93306; 93880; 93971; 96372; 96374; 96376; 97161; 97165; 99285; A9270; G0378; J1644; J1940